=== PATIENT | female | born 1940 | race Caucasian/White ===

== ENCOUNTER → 2016-04-26 | Outpatient (REF) | payer MEDICARE, BC ==
[~2016-04-26] MED LIST: ACET-654 PO; ACET50TAOT PO; AMBI5TAB PO; AMLO10TA PO; AMLO10TA2 PO; AMOX875T2 PO; ASPI1TAB PO; ASPI81TAEC PO; ATOR1TAB18 PO; ATOR1TAB21 PO; CEFT500T PO; CELE10TA PO; CLOP75TA2 PO; DULC10SU2 PR; ENEM1ENE4 PR; FERR325T PO; GLUC500T PO; HYDR25TAB PO; HYDR62TA PO; IBUPOTC PO; LABE20TAB PO; LISI-538 PO; MAGN400T2 PO; MAGN400T5 PO; METF500T PO; MILKSUS PO; NICO21PAT TD; PLAV75TA PO; POTA10CA PO; SENN8.6T7 PO; VITMTA PO; ZOLP5TAB PO
[2016-04-26 10:39] LABS: MEAN CORPUSCULAR HEMOGLOBIN 28.2 pg (27.0-33.0); MEAN CORPUSCULAR HGB CONC 31.7 g/dl (32.0-36.5); MEAN CORPUSCULAR VOLUME 89.1 fl (80.0-96.0); RED CELL DISTRIBUTION WIDTH 14.9 % (11.5-14.5); WHITE BLOOD COUNT 11.4 K/mm3 (4.0-10.0)
[2016-04-26 11:16] LABS: CALCIUM LEVEL 9.5 MG/DL (8.8-10.2); CREATININE FOR GFR 1.03 MG/DL (0.55-1.02); GLOMERULAR FILTRATION RATE 55.9 (>39); MAGNESIUM LEVEL 1.8 MG/DL (1.8-2.4); POTASSIUM SERUM 4.2 MEQ/L (3.5-5.1)
== END ==
PROVIDERS: ATTEND Internal Medicine
DX: E83.42 Hypomagnesemia (principal)

== ENCOUNTER → 2016-05-25 | Outpatient (REF) | payer MEDICARE, BC ==
[~2016-05-25] MED LIST changes: -CEFT500T PO; +CEFT500T3 PO; -PLAV75TA PO; +PLAV75TA38 PO
[2016-05-25 11:01] LABS: MEAN CORPUSCULAR HEMOGLOBIN 28.9 pg (27.0-33.0); MEAN CORPUSCULAR HGB CONC 32.2 g/dl (32.0-36.5); MEAN CORPUSCULAR VOLUME 89.6 fl (80.0-96.0); RED CELL DISTRIBUTION WIDTH 13.1 % (11.5-14.5); WHITE BLOOD COUNT 12.3 K/mm3 (4.0-10.0)
[2016-05-25 11:20] LABS: ANION GAP 12 MEQ/L (8-16); BLOOD UREA NITROGEN 22 MG/DL (7-18); CALCIUM LEVEL 9.3 MG/DL (8.8-10.2); CARBON DIOXIDE LEVEL 27 MEQ/L (21-32); CHLORIDE LEVEL 100 MEQ/L (98-107); CREATININE FOR GFR 0.95 MG/DL (0.55-1.02); GLOMERULAR FILTRATION RATE > 60.0 (>39); GLUCOSE, FASTING 206 MG/DL (83-110); MAGNESIUM LEVEL 1.8 MG/DL (1.8-2.4); POTASSIUM SERUM 4.3 MEQ/L (3.5-5.1); SODIUM LEVEL 139 MEQ/L (136-145)
== END ==
PROVIDERS: ATTEND Internal Medicine
DX: E11.9 Type 2 diabetes mellitus without complications (principal); E83.42 Hypomagnesemia

== ENCOUNTER → 2016-06-29 | Outpatient (REF) | payer MEDICARE, BC ==
[2016-06-29 10:49] LABS: MEAN CORPUSCULAR HEMOGLOBIN 29.1 pg (27.0-33.0); MEAN CORPUSCULAR VOLUME 88.3 fl (80.0-96.0); RED CELL DISTRIBUTION WIDTH 12.8 % (11.5-14.5); WHITE BLOOD COUNT 9.5 K/mm3 (4.0-10.0)
[2016-06-29 11:30] LABS: CREATININE FOR GFR 0.98 MG/DL (0.55-1.02); GLOMERULAR FILTRATION RATE 59.2 (>39); POTASSIUM SERUM 4.2 MEQ/L (3.5-5.1)
== END ==
PROVIDERS: ATTEND Internal Medicine
DX: E83.42 Hypomagnesemia (principal)

== ENCOUNTER → 2016-07-27 | Outpatient (REF) | payer MEDICARE, BC ==
[~2016-07-27] MED LIST changes: +HYDR25TA6 PO; -HYDR62TA PO
[2016-07-27 10:00] LABS: MEAN CORPUSCULAR HEMOGLOBIN 29.1 pg (27.0-33.0); MEAN CORPUSCULAR HGB CONC 32.5 g/dl (32.0-36.5); MEAN CORPUSCULAR VOLUME 89.5 fl (80.0-96.0); WHITE BLOOD COUNT 10.2 K/mm3 (4.0-10.0)
[2016-07-27 10:25] LABS: CALCIUM LEVEL 8.9 MG/DL (8.8-10.2); CREATININE FOR GFR 0.97 MG/DL (0.55-1.02); GLOMERULAR FILTRATION RATE 59.9 (>39); MAGNESIUM LEVEL 1.8 MG/DL (1.8-2.4); POTASSIUM SERUM 4.2 MEQ/L (3.5-5.1)
== END ==
PROVIDERS: ATTEND Internal Medicine
DX: E83.42 Hypomagnesemia (principal)

== ENCOUNTER → 2016-08-24 | Outpatient (REF) | payer MEDICARE, BC ==
[2016-08-24 10:10] LABS: MEAN CORPUSCULAR HEMOGLOBIN 29.5 pg (27.0-33.0); MEAN CORPUSCULAR HGB CONC 32.8 g/dl (32.0-36.5); MEAN CORPUSCULAR VOLUME 89.9 fl (80.0-96.0); RED CELL DISTRIBUTION WIDTH 13.1 % (11.5-14.5); WHITE BLOOD COUNT 8.8 K/mm3 (4.0-10.0)
[2016-08-24 10:25] LABS: ANION GAP 9 MEQ/L (8-16); BLOOD UREA NITROGEN 17 MG/DL (7-18); CALCIUM LEVEL 9.1 MG/DL (8.8-10.2); CARBON DIOXIDE LEVEL 27 MEQ/L (21-32); CHLORIDE LEVEL 102 MEQ/L (98-107); CREATININE FOR GFR 0.95 MG/DL (0.55-1.02); GLOMERULAR FILTRATION RATE > 60.0 (>39); GLUCOSE, FASTING 211 MG/DL (83-110); POTASSIUM SERUM 4.8 MEQ/L (3.5-5.1); SODIUM LEVEL 138 MEQ/L (136-145)
== END ==
PROVIDERS: ATTEND Internal Medicine
DX: E11.9 Type 2 diabetes mellitus without complications (principal); E83.42 Hypomagnesemia

== ENCOUNTER → 2016-09-28 | Outpatient (REF) | payer MEDICARE, BC ==
[2016-09-28 10:40] LABS: MEAN CORPUSCULAR HEMOGLOBIN 30.2 pg (27.0-33.0); MEAN CORPUSCULAR VOLUME 88.8 fl (80.0-96.0); RED CELL DISTRIBUTION WIDTH 13.1 % (11.5-14.5); WHITE BLOOD COUNT 9.3 K/mm3 (4.0-10.0)
[2016-09-28 10:50] LABS: CALCIUM LEVEL 8.8 MG/DL (8.8-10.2); CREATININE FOR GFR 1.02 MG/DL (0.55-1.02); GLOMERULAR FILTRATION RATE 56.6 (>39); MAGNESIUM LEVEL 1.8 MG/DL (1.8-2.4); POTASSIUM SERUM 4.2 MEQ/L (3.5-5.1)
== END ==
PROVIDERS: ATTEND Internal Medicine
DX: E83.42 Hypomagnesemia (principal)

== ENCOUNTER → 2016-10-12 | Outpatient (REF) | payer MEDICARE, BC | PROVIDERS: ATTEND Internal Medicine | DX: R19.7 Diarrhea, unspecified (principal) ==

== ENCOUNTER → 2016-10-28 | Outpatient (REF) | payer MEDICARE, BC ==
[~2016-10-28] MED LIST changes: -ACET-654 PO; +ACET1TAB17 PO; -ATOR1TAB18 PO; +ATOR80TA59 PO; +FERR1TAB8 PO; -FERR325T PO; -METF500T PO; +METF500T13 PO; +PLAV1TAB2 PO; -PLAV75TA38 PO
[2016-10-28 10:30] LABS: MEAN CORPUSCULAR HEMOGLOBIN 29.2 pg (27.0-33.0); MEAN CORPUSCULAR HGB CONC 32.6 g/dl (32.0-36.5); MEAN CORPUSCULAR VOLUME 89.6 fl (80.0-96.0); RED CELL DISTRIBUTION WIDTH 13.4 % (11.5-14.5); WHITE BLOOD COUNT 10.3 K/mm3 (4.0-10.0)
[2016-10-28 10:56] LABS: ANION GAP 12 MEQ/L (8-16); BLOOD UREA NITROGEN 8 MG/DL (7-18); CARBON DIOXIDE LEVEL 22 MEQ/L (21-32); CHLORIDE LEVEL 102 MEQ/L (98-107); CREATININE FOR GFR 0.96 MG/DL (0.55-1.02); GLOMERULAR FILTRATION RATE > 60.0 (>39); GLUCOSE, FASTING 227 MG/DL (83-110); MAGNESIUM LEVEL 1.8 MG/DL (1.8-2.4); POTASSIUM SERUM 4.6 MEQ/L (3.5-5.1); SODIUM LEVEL 136 MEQ/L (136-145)
== END ==
PROVIDERS: ATTEND Internal Medicine
DX: E83.42 Hypomagnesemia (principal)

== ENCOUNTER → 2016-11-19 | Outpatient (REF) | payer MEDICARE, BC | PROVIDERS: ATTEND Internal Medicine | DX: I10 Essential (primary) hypertension (principal); E78.00 Pure hypercholesterolemia, unspecified ==

== ENCOUNTER → 2016-11-23 | Outpatient (REF) | payer MEDICARE, BC ==
[2016-11-23 10:30] LABS: MEAN CORPUSCULAR HEMOGLOBIN 29.2 pg (27.0-33.0); MEAN CORPUSCULAR HGB CONC 32.5 g/dl (32.0-36.5); RED CELL DISTRIBUTION WIDTH 13.3 % (11.5-14.5); WHITE BLOOD COUNT 9.2 K/mm3 (4.0-10.0)
[2016-11-23 10:47] LABS: CALCIUM LEVEL 9.2 MG/DL (8.8-10.2); CREATININE FOR GFR 1.11 MG/DL (0.55-1.02); GLOMERULAR FILTRATION RATE 51.3 (>39); MAGNESIUM LEVEL 2.1 MG/DL (1.8-2.4); POTASSIUM SERUM 4.6 MEQ/L (3.5-5.1)
== END ==
PROVIDERS: ATTEND Internal Medicine
DX: E11.9 Type 2 diabetes mellitus without complications (principal); E83.42 Hypomagnesemia

== ENCOUNTER → 2016-12-27 | Outpatient (REF) | payer MEDICARE, BC ==
[2016-12-27 11:21] LABS: MEAN CORPUSCULAR HEMOGLOBIN 29.7 pg (27.0-33.0); MEAN CORPUSCULAR HGB CONC 33.3 g/dl (32.0-36.5); MEAN CORPUSCULAR VOLUME 89.1 fl (80.0-96.0); RED CELL DISTRIBUTION WIDTH 12.9 % (11.5-14.5); WHITE BLOOD COUNT 10.2 K/mm3 (4.0-10.0)
[2016-12-27 11:41] LABS: CREATININE FOR GFR 1.02 MG/DL (0.55-1.02); GLOMERULAR FILTRATION RATE 56.4 (>39); POTASSIUM SERUM 4.4 MEQ/L (3.5-5.1)
== END ==
PROVIDERS: ATTEND Internal Medicine
DX: E83.42 Hypomagnesemia (principal)

== ENCOUNTER → 2017-01-07 | Outpatient (REF) | payer MEDICARE, BC | PROVIDERS: ATTEND Physician Assistant | DX: R19.7 Diarrhea, unspecified (principal) ==

== ENCOUNTER → 2017-01-24 | Outpatient (REF) | payer MEDICARE, BC ==
[2017-01-24 11:18] LABS: MEAN CORPUSCULAR HEMOGLOBIN 28.8 pg (27.0-33.0); MEAN CORPUSCULAR VOLUME 90.1 fl (80.0-96.0); RED CELL DISTRIBUTION WIDTH 13.5 % (11.5-14.5); WHITE BLOOD COUNT 9.4 10^3/uL (4.0-10.0)
[2017-01-24 11:49] LABS: CALCIUM LEVEL 8.8 MG/DL (8.8-10.2); CREATININE FOR GFR 1.08 MG/DL (0.55-1.02); GLOMERULAR FILTRATION RATE 52.8 (>39); MAGNESIUM LEVEL 2.1 MG/DL (1.8-2.4); POTASSIUM SERUM 4.7 MEQ/L (3.5-5.1)
== END ==
PROVIDERS: ATTEND Internal Medicine
DX: E83.42 Hypomagnesemia (principal)

== ENCOUNTER → 2017-03-29 | Outpatient (REF) | payer MEDICARE, BC ==
[2017-03-29 10:29] LABS: MEAN CORPUSCULAR HGB CONC 32.5 g/dl (32.0-36.5); MEAN CORPUSCULAR VOLUME 89.2 fl (80.0-96.0); PLATELET COUNT, AUTOMATED 314 10^3/uL (150-450); RED CELL DISTRIBUTION WIDTH 13.2 % (11.5-14.5)
[2017-03-29 10:44] LABS: ANION GAP 10 MEQ/L (8-16); BLOOD UREA NITROGEN 19 MG/DL (7-18); CARBON DIOXIDE LEVEL 24 MEQ/L (21-32); CHLORIDE LEVEL 103 MEQ/L (98-107); CREATININE FOR GFR 0.91 MG/DL (0.55-1.02); GLOMERULAR FILTRATION RATE > 60.0 (>39); GLUCOSE, FASTING 137 MG/DL (83-110); POTASSIUM SERUM 4.8 MEQ/L (3.5-5.1); SODIUM LEVEL 137 MEQ/L (136-145)
== END ==
PROVIDERS: ATTEND Internal Medicine
DX: E83.42 Hypomagnesemia (principal)

== ENCOUNTER → 2017-04-04 | Outpatient (REF) | payer MEDICARE, BC ==
[2017-04-04 15:32] LABS: MEAN CORPUSCULAR HEMOGLOBIN 28.5 pg (27.0-33.0); MEAN CORPUSCULAR HGB CONC 32.1 g/dl (32.0-36.5); MEAN CORPUSCULAR VOLUME 88.7 fl (80.0-96.0); PLATELET COUNT, AUTOMATED 358 10^3/uL (150-450); RED CELL DISTRIBUTION WIDTH 13.4 % (11.5-14.5); WHITE BLOOD COUNT 12.1 10^3/uL (4.0-10.0)
[2017-04-04 15:41] LABS: ANION GAP 10 MEQ/L (8-16); BLOOD UREA NITROGEN 21 MG/DL (7-18); CALCIUM LEVEL 9.1 MG/DL (8.8-10.2); CARBON DIOXIDE LEVEL 27 MEQ/L (21-32); CHLORIDE LEVEL 101 MEQ/L (98-107); CREATININE FOR GFR 0.95 MG/DL (0.55-1.02); GLOMERULAR FILTRATION RATE > 60.0 (>39); GLUCOSE, FASTING 163 MG/DL (83-110); POTASSIUM SERUM 4.6 MEQ/L (3.5-5.1); SODIUM LEVEL 138 MEQ/L (136-145)
--- NOTE | 2017-04-04 16:22 | REP ---
CHEST, SINGLE VIEW: Single view of the chest is performed. There is no definite acute infiltrate. There appears to be some mild bibasilar fibroatelectatic change. The patient is rotated toward the right. The heart does not appear to be significantly enlarged. There is tortuosity of the thoracic aorta. IMPRESSION: Mild bibasilar fibroatelectatic change without evidence of acute infiltrate. Signed by Glenroy Pedroza MD 04/05/2017 09:05 A
== END ==
PROVIDERS: ATTEND Internal Medicine
DX: R05 Cough (principal)

== ENCOUNTER → 2017-04-06 | Outpatient (REF) | payer MEDICARE, BC ==
[2017-04-06 17:22] LABS: MEAN CORPUSCULAR HEMOGLOBIN 28.1 pg (27.0-33.0); MEAN CORPUSCULAR HGB CONC 31.8 g/dl (32.0-36.5); MEAN CORPUSCULAR VOLUME 88.4 fl (80.0-96.0); PLATELET COUNT, AUTOMATED 360 10^3/uL (150-450); RED CELL DISTRIBUTION WIDTH 13.4 % (11.5-14.5); WHITE BLOOD COUNT 11.7 10^3/uL (4.0-10.0)
== END ==
PROVIDERS: ATTEND Internal Medicine
DX: J20.9 Acute bronchitis, unspecified (principal)

== ENCOUNTER → 2017-04-12 | Outpatient (REF) | payer MEDICARE, BC ==
[2017-04-12 11:16] LABS: MEAN CORPUSCULAR HEMOGLOBIN 27.6 pg (27.0-33.0); MEAN CORPUSCULAR VOLUME 86.2 fl (80.0-96.0); PLATELET COUNT, AUTOMATED 318 10^3/uL (150-450); RED CELL DISTRIBUTION WIDTH 13.7 % (11.5-14.5); WHITE BLOOD COUNT 10.4 10^3/uL (4.0-10.0)
[2017-04-12 11:54] LABS: CALCIUM LEVEL 8.9 MG/DL (8.8-10.2); CREATININE FOR GFR 0.98 MG/DL (0.55-1.02); GLOMERULAR FILTRATION RATE 59.1 (>39); POTASSIUM SERUM 4.6 MEQ/L (3.5-5.1)
== END ==
PROVIDERS: ATTEND Internal Medicine
DX: R05 Cough (principal)

== ENCOUNTER → 2017-04-26 | Outpatient (REF) | payer MEDICARE, BC ==
[2017-04-26 10:59] LABS: HEMATOCRIT 34.2 % (36.0-47.0); HEMOGLOBIN 11.1 g/dl (12.0-16.0); MEAN CORPUSCULAR HEMOGLOBIN 28.4 pg (27.0-33.0); MEAN CORPUSCULAR HGB CONC 32.5 g/dl (32.0-36.5); MEAN CORPUSCULAR VOLUME 87.5 fl (80.0-96.0); PLATELET COUNT, AUTOMATED 292 10^3/uL (150-450); RED BLOOD COUNT 3.91 10^6/uL (4.00-5.40); RED CELL DISTRIBUTION WIDTH 13.8 % (11.5-14.5); WHITE BLOOD COUNT 11.1 10^3/uL (4.0-10.0)
[2017-04-26 11:23] LABS: ANION GAP 10 MEQ/L (8-16); BLOOD UREA NITROGEN 13 MG/DL (7-18); CALCIUM LEVEL 8.7 MG/DL (8.8-10.2); CARBON DIOXIDE LEVEL 24 MEQ/L (21-32); CHLORIDE LEVEL 101 MEQ/L (98-107); GLOMERULAR FILTRATION RATE > 60.0 (>39); GLUCOSE, FASTING 140 MG/DL (83-110); MAGNESIUM LEVEL 1.9 MG/DL (1.8-2.4); POTASSIUM SERUM 4.5 MEQ/L (3.5-5.1); SODIUM LEVEL 135 MEQ/L (136-145)
== END ==
DX: E83.42 Hypomagnesemia (principal)
CPT/HCPCS: 83735

== ENCOUNTER → 2017-05-09 | Outpatient (REF) | payer MEDICARE, BC ==
[2017-05-09 14:04] LABS: HEMOGLOBIN 10.9 g/dl (12.0-16.0); MEAN CORPUSCULAR HEMOGLOBIN 27.9 pg (27.0-33.0); MEAN CORPUSCULAR HGB CONC 32.1 g/dl (32.0-36.5); PLATELET COUNT, AUTOMATED 333 10^3/uL (150-450); RED BLOOD COUNT 3.91 10^6/uL (4.00-5.40); RED CELL DISTRIBUTION WIDTH 13.7 % (11.5-14.5); WHITE BLOOD COUNT 12.2 10^3/uL (4.0-10.0)
[2017-05-09 14:34] LABS: ANION GAP 8 MEQ/L (8-16); BLOOD UREA NITROGEN 21 MG/DL (7-18); CARBON DIOXIDE LEVEL 25 MEQ/L (21-32); CHLORIDE LEVEL 101 MEQ/L (98-107); CREATININE FOR GFR 0.91 MG/DL (0.55-1.02); GLOMERULAR FILTRATION RATE > 60.0 (>39); GLUCOSE, FASTING 174 MG/DL (83-110); POTASSIUM SERUM 4.3 MEQ/L (3.5-5.1); SODIUM LEVEL 134 MEQ/L (136-145); URIC ACID 5.1 MG/DL (2.6-6.0)
== END ==
DX: M79.675 Pain in left toe(s) (principal); L03.032 Cellulitis of left toe
CPT/HCPCS: 84550

== ENCOUNTER → 2017-05-11 | Outpatient (REF) | payer MEDICARE, BC ==
[2017-05-11 10:12] LABS: HEMATOCRIT 36.1 % (36.0-47.0); HEMOGLOBIN 11.5 g/dl (12.0-16.0); MEAN CORPUSCULAR HEMOGLOBIN 28.1 pg (27.0-33.0); MEAN CORPUSCULAR HGB CONC 31.9 g/dl (32.0-36.5); MEAN CORPUSCULAR VOLUME 88.3 fl (80.0-96.0); PLATELET COUNT, AUTOMATED 400 10^3/uL (150-450); RED BLOOD COUNT 4.09 10^6/uL (4.00-5.40); RED CELL DISTRIBUTION WIDTH 13.7 % (11.5-14.5); WHITE BLOOD COUNT 10.2 10^3/uL (4.0-10.0)
== END ==
DX: L03.032 Cellulitis of left toe (principal)
CPT/HCPCS: 85027

== ENCOUNTER → 2017-05-31 | Outpatient (REF) | payer MEDICARE, BC ==
[2017-05-31 10:13] LABS: HEMATOCRIT 35.4 % (36.0-47.0); MEAN CORPUSCULAR HEMOGLOBIN 27.4 pg (27.0-33.0); MEAN CORPUSCULAR HGB CONC 31.1 g/dl (32.0-36.5); MEAN CORPUSCULAR VOLUME 88.1 fl (80.0-96.0); PLATELET COUNT, AUTOMATED 271 10^3/uL (150-450); RED BLOOD COUNT 4.02 10^6/uL (4.00-5.40); RED CELL DISTRIBUTION WIDTH 14.3 % (11.5-14.5); WHITE BLOOD COUNT 9.8 10^3/uL (4.0-10.0)
[2017-05-31 10:27] LABS: ANION GAP 10 MEQ/L (8-16); BLOOD UREA NITROGEN 19 MG/DL (7-18); CALCIUM LEVEL 8.5 MG/DL (8.8-10.2); CARBON DIOXIDE LEVEL 25 MEQ/L (21-32); CHLORIDE LEVEL 101 MEQ/L (98-107); CREATININE FOR GFR 1.09 MG/DL (0.55-1.30); GLOMERULAR FILTRATION RATE 52.2 (>39); GLUCOSE, FASTING 209 MG/DL (70-100); POTASSIUM SERUM 4.8 MEQ/L (3.5-5.1); SODIUM LEVEL 136 MEQ/L (136-145)
[2017-05-31 10:29] LABS: ESTIMATED AVERAGE GLUCOSE 194 MG/DL (60-110); HEMOGLOBIN A1c 8.4 %
== END ==
DX: E83.42 Hypomagnesemia (principal); E11.9 Type 2 diabetes mellitus without complications
CPT/HCPCS: 83036

== ENCOUNTER → 2017-06-07 | Outpatient (REF) | payer MEDICARE, BC ==
[2017-06-07 20:34] LABS: HEMATOCRIT 36.7 % (36.0-47.0); HEMOGLOBIN 11.4 g/dl (12.0-16.0); MEAN CORPUSCULAR HEMOGLOBIN 27.1 pg (27.0-33.0); MEAN CORPUSCULAR HGB CONC 31.1 g/dl (32.0-36.5); MEAN CORPUSCULAR VOLUME 87.4 fl (80.0-96.0); PLATELET COUNT, AUTOMATED 300 10^3/uL (150-450); RED CELL DISTRIBUTION WIDTH 14.3 % (11.5-14.5); WHITE BLOOD COUNT 9.8 10^3/uL (4.0-10.0)
[2017-06-07 21:14] LABS: ANION GAP 9 MEQ/L (8-16); BLOOD UREA NITROGEN 21 MG/DL (7-18); C REACTIVE PROTEIN QUANTITATIV 0.43 MG/DL (0.00-0.30); CARBON DIOXIDE LEVEL 25 MEQ/L (21-32); CHLORIDE LEVEL 103 MEQ/L (98-107); CREATININE FOR GFR 0.86 MG/DL (0.55-1.30); GLOMERULAR FILTRATION RATE > 60.0 (>39); GLUCOSE, FASTING 176 MG/DL (70-100); POTASSIUM SERUM 4.3 MEQ/L (3.5-5.1); SODIUM LEVEL 137 MEQ/L (136-145)
[2017-06-07 21:19] LABS: ERYTHROCYTE SEDIMENTATION RATE 45 mm/hr (0-30)
== END ==
DX: L08.9 Local infection of the skin and subcutaneous tissue, unspecified (principal)
CPT/HCPCS: 80048

== ENCOUNTER → 2017-06-08 | Outpatient (REF) | payer MEDICARE, BC | DX: M86.172 Other acute osteomyelitis, left ankle and foot (principal) | CPT/HCPCS: 73620 ==

== ENCOUNTER → 2017-06-12 | Outpatient (REF) | payer MEDICARE, BC ==
[2017-06-12 10:59] LABS: HEMATOCRIT 35.2 % (36.0-47.0); HEMOGLOBIN 11.1 g/dl (12.0-16.0); MEAN CORPUSCULAR HEMOGLOBIN 27.1 pg (27.0-33.0); MEAN CORPUSCULAR HGB CONC 31.5 g/dl (32.0-36.5); MEAN CORPUSCULAR VOLUME 85.9 fl (80.0-96.0); PLATELET COUNT, AUTOMATED 284 10^3/uL (150-450); RED CELL DISTRIBUTION WIDTH 14.4 % (11.5-14.5); WHITE BLOOD COUNT 9.1 10^3/uL (4.0-10.0)
[2017-06-12 11:10] LABS: ANION GAP 9 MEQ/L (8-16); BLOOD UREA NITROGEN 21 MG/DL (7-18); C REACTIVE PROTEIN QUANTITATIV 0.59 MG/DL (0.00-0.30); CALCIUM LEVEL 8.8 MG/DL (8.8-10.2); CARBON DIOXIDE LEVEL 26 MEQ/L (21-32); CHLORIDE LEVEL 103 MEQ/L (98-107); CREATININE FOR GFR 0.98 MG/DL (0.55-1.30); GLOMERULAR FILTRATION RATE 59.1 (>39); GLUCOSE, FASTING 215 MG/DL (70-100); POTASSIUM SERUM 4.4 MEQ/L (3.5-5.1); SODIUM LEVEL 138 MEQ/L (136-145)
[2017-06-12 12:55] LABS: ERYTHROCYTE SEDIMENTATION RATE 6 mm/hr (0-30)
== END ==
DX: L03.032 Cellulitis of left toe (principal)
CPT/HCPCS: 80048

== ENCOUNTER → 2017-06-19 | Outpatient (REF) | payer MEDICARE, BC ==
[2017-06-19 10:08] LABS: HEMATOCRIT 36.3 % (36.0-47.0); HEMOGLOBIN 11.5 g/dl (12.0-16.0); MEAN CORPUSCULAR HEMOGLOBIN 27.4 pg (27.0-33.0); MEAN CORPUSCULAR HGB CONC 31.7 g/dl (32.0-36.5); MEAN CORPUSCULAR VOLUME 86.4 fl (80.0-96.0); PLATELET COUNT, AUTOMATED 301 10^3/uL (150-450); RED CELL DISTRIBUTION WIDTH 14.5 % (11.5-14.5); WHITE BLOOD COUNT 9.7 10^3/uL (4.0-10.0)
[2017-06-19 10:29] LABS: ANION GAP 9 MEQ/L (8-16); BLOOD UREA NITROGEN 18 MG/DL (7-18); C REACTIVE PROTEIN QUANTITATIV 0.33 MG/DL (0.00-0.30); CALCIUM LEVEL 8.8 MG/DL (8.8-10.2); CARBON DIOXIDE LEVEL 25 MEQ/L (21-32); CHLORIDE LEVEL 103 MEQ/L (98-107); CREATININE FOR GFR 0.88 MG/DL (0.55-1.30); GLOMERULAR FILTRATION RATE > 60.0 (>39); GLUCOSE, FASTING 160 MG/DL (70-100); POTASSIUM SERUM 4.8 MEQ/L (3.5-5.1); SODIUM LEVEL 137 MEQ/L (136-145)
== END ==
DX: L03.031 Cellulitis of right toe (principal)
CPT/HCPCS: 80048

== ENCOUNTER 2017-06-20 09:24 | Outpatient (REF) | payer MEDICARE, BC, MEDICAID | END 2017-06-21 | LOC: M LAB REF 09:24 | DX: D23.72 Other benign neoplasm of skin of left lower limb, including hip (principal); L90.5 Scar conditions and fibrosis of skin; L08.9 Local infection of the skin and subcutaneous tissue, unspecified; E11.621 Type 2 diabetes mellitus with foot ulcer | CPT/HCPCS: 88304 ==

== ENCOUNTER → 2017-06-21 | Outpatient (REF) | payer MEDICARE, BC ==
[2017-06-21 10:40] LABS: HEMATOCRIT 35.8 % (36.0-47.0); HEMOGLOBIN 11.2 g/dl (12.0-16.0); MEAN CORPUSCULAR HEMOGLOBIN 27.4 pg (27.0-33.0); MEAN CORPUSCULAR HGB CONC 31.3 g/dl (32.0-36.5); MEAN CORPUSCULAR VOLUME 87.5 fl (80.0-96.0); PLATELET COUNT, AUTOMATED 279 10^3/uL (150-450); RED BLOOD COUNT 4.09 10^6/uL (4.00-5.40); RED CELL DISTRIBUTION WIDTH 14.6 % (11.5-14.5); WHITE BLOOD COUNT 10.8 10^3/uL (4.0-10.0)
[2017-06-21 11:03] LABS: ERYTHROCYTE SEDIMENTATION RATE 41 mm/hr (0-30)
[2017-06-21 11:05] LABS: C REACTIVE PROTEIN QUANTITATIV 0.31 MG/DL (0.00-0.30)
== END ==
DX: M86.9 Osteomyelitis, unspecified (principal)
CPT/HCPCS: 86140

== ENCOUNTER → 2017-06-22 | Outpatient (REF) | payer MEDICARE, BC, MEDICAID | LOC: M SFHCPLAZ 15:43 | DX: M86.9 Osteomyelitis, unspecified (principal) | CPT/HCPCS: 87070 ==

== ENCOUNTER → 2017-06-27 | Outpatient (REF) ==
[2017-06-27 10:43] LABS: HEMATOCRIT 37.7 % (36.0-47.0); HEMOGLOBIN 11.7 g/dl (12.0-16.0); MEAN CORPUSCULAR HEMOGLOBIN 27.2 pg (27.0-33.0); MEAN CORPUSCULAR VOLUME 87.7 fl (80.0-96.0); PLATELET COUNT, AUTOMATED 263 10^3/uL (150-450); RED CELL DISTRIBUTION WIDTH 14.6 % (11.5-14.5); WHITE BLOOD COUNT 9.8 10^3/uL (4.0-10.0)
[2017-06-27 11:09] LABS: ANION GAP 10 MEQ/L (8-16); BLOOD UREA NITROGEN 20 MG/DL (7-18); CALCIUM LEVEL 8.8 MG/DL (8.8-10.2); CARBON DIOXIDE LEVEL 24 MEQ/L (21-32); CHLORIDE LEVEL 104 MEQ/L (98-107); CREATININE FOR GFR 0.98 MG/DL (0.55-1.30); GLOMERULAR FILTRATION RATE 59.1 (>39); GLUCOSE, FASTING 240 MG/DL (70-100); MAGNESIUM LEVEL 1.8 MG/DL (1.8-2.4); POTASSIUM SERUM 4.4 MEQ/L (3.5-5.1); SODIUM LEVEL 138 MEQ/L (136-145)
== END ==
DX: E83.42 Hypomagnesemia (principal)

== ENCOUNTER → 2017-06-29 | Outpatient (CLI) | payer MEDICARE, MEDICAID, BC | LOC: M RAD 13:14 | DX: L97.524 Non-pressure chronic ulcer of other part of left foot with necrosis of bone (principal); E11.621 Type 2 diabetes mellitus with foot ulcer; I77.9 Disorder of arteries and arterioles, unspecified; I10 Essential (primary) hypertension; M86.172 Other acute osteomyelitis, left ankle and foot | CPT/HCPCS: 93971 ==

== ENCOUNTER → 2017-07-25 | Outpatient (REF) ==
[2017-07-25 10:26] LABS: HEMATOCRIT 35.6 % (36.0-47.0); HEMOGLOBIN 11.2 g/dl (12.0-15.5); MEAN CORPUSCULAR HGB CONC 31.5 g/dl (32.0-36.5); MEAN CORPUSCULAR VOLUME 85.8 fl (80.0-96.0); PLATELET COUNT, AUTOMATED 279 10^3/uL (150-450); RED BLOOD COUNT 4.15 10^6/uL (4.00-5.40); RED CELL DISTRIBUTION WIDTH 14.6 % (11.5-14.5); WHITE BLOOD COUNT 9.5 10^3/uL (4.0-10.0)
[2017-07-25 10:36] LABS: ANION GAP 8 MEQ/L (8-16); BLOOD UREA NITROGEN 22 MG/DL (7-18); CALCIUM LEVEL 8.9 MG/DL (8.8-10.2); CARBON DIOXIDE LEVEL 26 MEQ/L (21-32); CHLORIDE LEVEL 105 MEQ/L (98-107); CREATININE FOR GFR 0.95 MG/DL (0.55-1.30); GLOMERULAR FILTRATION RATE > 60.0 (>39); GLUCOSE, FASTING 168 MG/DL (70-100); MAGNESIUM LEVEL 2.2 MG/DL (1.8-2.4); POTASSIUM SERUM 4.7 MEQ/L (3.5-5.1); SODIUM LEVEL 139 MEQ/L (136-145)
== END ==
DX: E83.42 Hypomagnesemia (principal)

== ENCOUNTER → 2017-08-22 | Outpatient (REF) ==
[2017-08-22 10:36] LABS: HEMATOCRIT 36.7 % (36.0-47.0); HEMOGLOBIN 11.6 g/dl (12.0-15.5); MEAN CORPUSCULAR HEMOGLOBIN 27.2 pg (27.0-33.0); MEAN CORPUSCULAR HGB CONC 31.6 g/dl (32.0-36.5); MEAN CORPUSCULAR VOLUME 86.2 fl (80.0-96.0); PLATELET COUNT, AUTOMATED 308 10^3/uL (150-450); RED BLOOD COUNT 4.26 10^6/uL (4.00-5.40); RED CELL DISTRIBUTION WIDTH 14.6 % (11.5-14.5); WHITE BLOOD COUNT 8.4 10^3/uL (4.0-10.0)
[2017-08-22 11:05] LABS: MAGNESIUM LEVEL 2.2 MG/DL (1.8-2.4)
[2017-08-22 11:09] LABS: ANION GAP 7 MEQ/L (8-16); BLOOD UREA NITROGEN 22 MG/DL (7-18); CALCIUM LEVEL 8.9 MG/DL (8.8-10.2); CARBON DIOXIDE LEVEL 26 MEQ/L (21-32); CHLORIDE LEVEL 104 MEQ/L (98-107); CREATININE FOR GFR 0.98 MG/DL (0.55-1.30); GLOMERULAR FILTRATION RATE 59.1 (>39); GLUCOSE, FASTING 158 MG/DL (70-100); POTASSIUM SERUM 4.3 MEQ/L (3.5-5.1); SODIUM LEVEL 137 MEQ/L (136-145)
[2017-08-22 12:29] LABS: ESTIMATED AVERAGE GLUCOSE 200 MG/DL (60-110); HEMOGLOBIN A1c 8.6 %
== END ==
DX: E83.42 Hypomagnesemia (principal)

== ENCOUNTER → 2017-09-29 | Outpatient (REF) ==
[2017-09-29 11:00] LABS: HEMATOCRIT 36.8 % (36.0-47.0); HEMOGLOBIN 11.7 g/dl (12.0-15.5); MEAN CORPUSCULAR HEMOGLOBIN 27.3 pg (27.0-33.0); MEAN CORPUSCULAR HGB CONC 31.8 g/dl (32.0-36.5); PLATELET COUNT, AUTOMATED 298 10^3/uL (150-450); RED BLOOD COUNT 4.28 10^6/uL (4.00-5.40); RED CELL DISTRIBUTION WIDTH 14.4 % (11.5-14.5); WHITE BLOOD COUNT 10.2 10^3/uL (4.0-10.0)
[2017-09-29 11:47] LABS: ANION GAP 8 MEQ/L (8-16); BLOOD UREA NITROGEN 19 MG/DL (7-18); CALCIUM LEVEL 8.8 MG/DL (8.8-10.2); CARBON DIOXIDE LEVEL 25 MEQ/L (21-32); CHLORIDE LEVEL 106 MEQ/L (98-107); CREATININE FOR GFR 0.93 MG/DL (0.55-1.30); GLOMERULAR FILTRATION RATE > 60.0 (>39); GLUCOSE, FASTING 146 MG/DL (70-100); MAGNESIUM LEVEL 1.8 MG/DL (1.8-2.4); POTASSIUM SERUM 4.5 MEQ/L (3.5-5.1); SODIUM LEVEL 139 MEQ/L (136-145)
== END ==
DX: E83.42 Hypomagnesemia (principal)

== ENCOUNTER → 2017-10-27 | Outpatient (REF) ==
[2017-10-27 09:25] LABS: HEMATOCRIT 36.7 % (36.0-47.0); HEMOGLOBIN 11.5 g/dl (12.0-15.5); MEAN CORPUSCULAR HEMOGLOBIN 27.3 pg (27.0-33.0); MEAN CORPUSCULAR HGB CONC 31.3 g/dl (32.0-36.5); PLATELET COUNT, AUTOMATED 260 10^3/uL (150-450); RED BLOOD COUNT 4.22 10^6/uL (4.00-5.40); RED CELL DISTRIBUTION WIDTH 14.1 % (11.5-14.5); WHITE BLOOD COUNT 9.9 10^3/uL (4.0-10.0)
[2017-10-27 10:11] LABS: ANION GAP 11 MEQ/L (8-16); BLOOD UREA NITROGEN 20 MG/DL (7-18); CALCIUM LEVEL 8.5 MG/DL (8.8-10.2); CARBON DIOXIDE LEVEL 19 MEQ/L (21-32); CHLORIDE LEVEL 109 MEQ/L (98-107); CREATININE FOR GFR 0.86 MG/DL (0.55-1.30); GLOMERULAR FILTRATION RATE > 60.0 (>39); GLUCOSE, FASTING 123 MG/DL (70-100); POTASSIUM SERUM 4.6 MEQ/L (3.5-5.1); SODIUM LEVEL 139 MEQ/L (136-145)
== END ==
DX: E83.42 Hypomagnesemia (principal)

== ENCOUNTER → 2017-12-01 | Outpatient (REF) ==
[2017-12-01 09:43] LABS: HEMATOCRIT 37.2 % (36.0-47.0); HEMOGLOBIN 11.7 g/dl (12.0-15.5); MEAN CORPUSCULAR HEMOGLOBIN 27.1 pg (27.0-33.0); MEAN CORPUSCULAR HGB CONC 31.5 g/dl (32.0-36.5); MEAN CORPUSCULAR VOLUME 86.3 fl (80.0-96.0); PLATELET COUNT, AUTOMATED 279 10^3/uL (150-450); RED BLOOD COUNT 4.31 10^6/uL (4.00-5.40); RED CELL DISTRIBUTION WIDTH 14.4 % (11.5-14.5); WHITE BLOOD COUNT 9.5 10^3/uL (4.0-10.0)
[2017-12-01 10:14] LABS: ANION GAP 9 MEQ/L (8-16); BLOOD UREA NITROGEN 18 MG/DL (7-18); CARBON DIOXIDE LEVEL 25 MEQ/L (21-32); CHLORIDE LEVEL 105 MEQ/L (98-107); CREATININE FOR GFR 0.98 MG/DL (0.55-1.30); GLOMERULAR FILTRATION RATE 59.1 (>39); GLUCOSE, FASTING 139 MG/DL (70-100); POTASSIUM SERUM 4.4 MEQ/L (3.5-5.1); SODIUM LEVEL 139 MEQ/L (136-145)
[2017-12-01 11:42] LABS: ESTIMATED AVERAGE GLUCOSE 186 MG/DL (60-110); HEMOGLOBIN A1c 8.1 %
== END ==
DX: E83.42 Hypomagnesemia (principal); E11.9 Type 2 diabetes mellitus without complications

== ENCOUNTER → 2017-12-26 | Outpatient (REF) ==
[2017-12-26 11:10] LABS: HEMATOCRIT 37.2 % (36.0-47.0); HEMOGLOBIN 11.8 g/dl (12.0-15.5); MEAN CORPUSCULAR HEMOGLOBIN 27.4 pg (27.0-33.0); MEAN CORPUSCULAR HGB CONC 31.7 g/dl (32.0-36.5); MEAN CORPUSCULAR VOLUME 86.5 fl (80.0-96.0); PLATELET COUNT, AUTOMATED 263 10^3/uL (150-450); RED CELL DISTRIBUTION WIDTH 14.6 % (11.5-14.5)
[2017-12-26 11:33] LABS: ANION GAP 8 MEQ/L (8-16); BLOOD UREA NITROGEN 17 MG/DL (7-18); CALCIUM LEVEL 8.9 MG/DL (8.8-10.2); CARBON DIOXIDE LEVEL 25 MEQ/L (21-32); CHLORIDE LEVEL 105 MEQ/L (98-107); CREATININE FOR GFR 0.94 MG/DL (0.55-1.30); GLOMERULAR FILTRATION RATE > 60.0 (>39); GLUCOSE, FASTING 131 MG/DL (70-100); MAGNESIUM LEVEL 2.1 MG/DL (1.8-2.4); POTASSIUM SERUM 4.6 MEQ/L (3.5-5.1); SODIUM LEVEL 138 MEQ/L (136-145)
== END ==
DX: E83.42 Hypomagnesemia (principal)

== ENCOUNTER → 2018-01-01 | Outpatient (CLI) | payer MEDICARE, MEDICAID ==
[~2018-01-01] MED LIST changes: -ACET1TAB17 PO; -ACET50TAOT PO; -AMBI5TAB PO; -AMLO10TA PO; -AMLO10TA2 PO; -AMOX875T2 PO; -ASPI1TAB PO; -ASPI81TAEC PO; -ATOR1TAB21 PO; -ATOR80TA59 PO; -CEFT500T3 PO; -CELE10TA PO; -CLOP75TA2 PO; -DULC10SU2 PR; +E-Z-PAQUE 96% w/w SUSP 176GM BTL As Ordered; -ENEM1ENE4 PR; -FERR1TAB8 PO; -GLUC500T PO; -HYDR25TA6 PO; -HYDR25TAB PO; -IBUPOTC PO; -LABE20TAB PO; -LISI-538 PO; -MAGN400T2 PO; -MAGN400T5 PO; -METF500T13 PO; -MILKSUS PO; -NICO21PAT TD; -PLAV1TAB2 PO; -POTA10CA PO; -SENN8.6T7 PO; +VARIBAR NECTAR 40% w/v 240ML SUSP BTL As Ordered; +VARIBAR PUDDING 40% w/v 230ML TUBE As Ordered; -VITMTA PO; -ZOLP5TAB PO
== END ==
LOC: M RAD 10:33
DX: R13.12 Dysphagia, oropharyngeal phase (principal)
CPT/HCPCS: 74230

== ENCOUNTER → 2018-01-24 | Outpatient (REF) ==
[2018-01-24 10:27] LABS: HEMATOCRIT 38.7 % (36.0-47.0); HEMOGLOBIN 12.2 g/dl (12.0-15.5); MEAN CORPUSCULAR HEMOGLOBIN 27.7 pg (27.0-33.0); MEAN CORPUSCULAR HGB CONC 31.5 g/dl (32.0-36.5); PLATELET COUNT, AUTOMATED 278 10^3/uL (150-450); RED CELL DISTRIBUTION WIDTH 14.4 % (11.5-14.5); WHITE BLOOD COUNT 10.2 10^3/uL (4.0-10.0)
[2018-01-24 10:54] LABS: ANION GAP 10 MEQ/L (8-16); BLOOD UREA NITROGEN 23 MG/DL (7-18); CALCIUM LEVEL 9.1 MG/DL (8.8-10.2); CARBON DIOXIDE LEVEL 24 MEQ/L (21-32); CHLORIDE LEVEL 106 MEQ/L (98-107); CREATININE FOR GFR 0.97 MG/DL (0.55-1.30); GLOMERULAR FILTRATION RATE 59.6 (>39); GLUCOSE, FASTING 148 MG/DL (70-100); MAGNESIUM LEVEL 2.2 MG/DL (1.8-2.4); POTASSIUM SERUM 4.5 MEQ/L (3.5-5.1); SODIUM LEVEL 140 MEQ/L (136-145)
== END ==
DX: E83.42 Hypomagnesemia (principal)

== ENCOUNTER → 2018-02-28 | Outpatient (REF) ==
[2018-02-28 09:49] LABS: HEMATOCRIT 38.5 % (36.0-47.0); HEMOGLOBIN 12.2 g/dl (12.0-15.5); MEAN CORPUSCULAR HEMOGLOBIN 28.2 pg (27.0-33.0); MEAN CORPUSCULAR HGB CONC 31.7 g/dl (32.0-36.5); MEAN CORPUSCULAR VOLUME 89.1 fl (80.0-96.0); PLATELET COUNT, AUTOMATED 278 10^3/uL (150-450); RED BLOOD COUNT 4.32 10^6/uL (4.00-5.40); RED CELL DISTRIBUTION WIDTH 13.8 % (11.5-14.5); WHITE BLOOD COUNT 10.1 10^3/uL (4.0-10.0)
[2018-02-28 10:10] LABS: ANION GAP 9 MEQ/L (8-16); BLOOD UREA NITROGEN 22 MG/DL (7-18); CALCIUM LEVEL 9.1 MG/DL (8.8-10.2); CARBON DIOXIDE LEVEL 25 MEQ/L (21-32); CHLORIDE LEVEL 106 MEQ/L (98-107); CREATININE FOR GFR 0.99 MG/DL (0.55-1.30); GLOMERULAR FILTRATION RATE 58.2 (>39); GLUCOSE, FASTING 162 MG/DL (70-100); MAGNESIUM LEVEL 2.1 MG/DL (1.8-2.4); POTASSIUM SERUM 4.6 MEQ/L (3.5-5.1); SODIUM LEVEL 140 MEQ/L (136-145)
[2018-02-28 10:42] LABS: ESTIMATED AVERAGE GLUCOSE 180 MG/DL (60-110); HEMOGLOBIN A1c 7.9 %
== END ==
DX: E83.42 Hypomagnesemia (principal); E11.9 Type 2 diabetes mellitus without complications

== ENCOUNTER → 2018-03-27 | Outpatient (REF) | payer MEDICARE, MEDICAID ==
[2018-03-27 10:04] LABS: HEMATOCRIT 35.8 % (36.0-47.0); HEMOGLOBIN 11.2 g/dl (12.0-15.5); MEAN CORPUSCULAR HEMOGLOBIN 27.3 pg (27.0-33.0); MEAN CORPUSCULAR HGB CONC 31.3 g/dl (32.0-36.5); MEAN CORPUSCULAR VOLUME 87.3 fl (80.0-96.0); PLATELET COUNT, AUTOMATED 258 10^3/uL (150-450); RED CELL DISTRIBUTION WIDTH 13.6 % (11.5-14.5); WHITE BLOOD COUNT 9.9 10^3/uL (4.0-10.0)
[2018-03-27 10:32] LABS: ANION GAP 9 MEQ/L (8-16); BLOOD UREA NITROGEN 25 MG/DL (7-18); CALCIUM LEVEL 8.4 MG/DL (8.8-10.2); CARBON DIOXIDE LEVEL 24 MEQ/L (21-32); CHLORIDE LEVEL 107 MEQ/L (98-107); CREATININE FOR GFR 1.01 MG/DL (0.55-1.30); GLOMERULAR FILTRATION RATE 56.9 (>39); GLUCOSE, FASTING 129 MG/DL (70-100); MAGNESIUM LEVEL 2.1 MG/DL (1.8-2.4); POTASSIUM SERUM 4.6 MEQ/L (3.5-5.1); SODIUM LEVEL 140 MEQ/L (136-145)
== END ==
DX: E11.9 Type 2 diabetes mellitus without complications (principal)
CPT/HCPCS: 83735

== ENCOUNTER → 2018-04-25 | Outpatient (REF) | payer MEDICARE, MEDICAID ==
[~2018-04-25] MED LIST changes: +ACET1TAB55 PO; +ACET500T15 PO; +AMBI5TAB PO; +AMLO10TA PO; +AMLO10TA4 PO; +AMOX875T2 PO; +ASPI1TAB PO; +ASPI81TAEC PO; +ATOR1TAB21 PO; +ATOR80TA59 PO; +CEFT500T3 PO; +CELE10TA PO; +CLOP75TA2 PO; +DULC10SU2 PR; -E-Z-PAQUE 96% w/w SUSP 176GM BTL As Ordered; +ENEM1ENE4 PR; +FERR1TAB8 PO; +GLUC500T PO; +HYDR25TA6 PO; +HYDR25TAB PO; +IBUPOTC PO; +KLOR10TA76 PO; +LABE20TAB PO; +LISI-538 PO; +MAGN400T2 PO; +MAGN400T5 PO; +METF500T13 PO; +MILK12002 PO; +NICO21PAT TD; +PLAV1TAB2 PO; +SENN8.6T7 PO; -VARIBAR NECTAR 40% w/v 240ML SUSP BTL As Ordered; -VARIBAR PUDDING 40% w/v 230ML TUBE As Ordered; +VITMTA PO; +ZOLP5TAB PO
[2018-04-25 11:34] LABS: HEMATOCRIT 39.2 % (36.0-47.0); HEMOGLOBIN 12.5 g/dl (12.0-15.5); MEAN CORPUSCULAR HGB CONC 31.9 g/dl (32.0-36.5); MEAN CORPUSCULAR VOLUME 87.7 fl (80.0-96.0); PLATELET COUNT, AUTOMATED 262 10^3/uL (150-450); RED BLOOD COUNT 4.47 10^6/uL (4.00-5.40); WHITE BLOOD COUNT 10.8 10^3/uL (4.0-10.0)
[2018-04-25 12:29] LABS: CALCIUM LEVEL 9.1 MG/DL (8.8-10.2); GLOMERULAR FILTRATION RATE 57.5 (>39); MAGNESIUM LEVEL 1.9 MG/DL (1.8-2.4); POTASSIUM SERUM 5.1 MEQ/L (3.5-5.1)
== END ==
PROVIDERS: ATTEND Internal Medicine
DX: E83.42 Hypomagnesemia (principal)

== ENCOUNTER → 2018-05-30 | Outpatient (REF) | payer MEDICARE, MEDICAID ==
[~2018-05-30] MED LIST changes: -AMLO10TA4 PO; +AMLO10TA5 PO; +MILK120011 PO; -MILK12002 PO
[2018-05-30 08:48] LABS: HEMATOCRIT 36.5 % (36.0-47.0); HEMOGLOBIN 11.5 g/dl (12.0-15.5); MEAN CORPUSCULAR HEMOGLOBIN 27.4 pg (27.0-33.0); MEAN CORPUSCULAR HGB CONC 31.5 g/dl (32.0-36.5); MEAN CORPUSCULAR VOLUME 87.1 fl (80.0-96.0); PLATELET COUNT, AUTOMATED 214 10^3/uL (150-450); RED BLOOD COUNT 4.19 10^6/uL (4.00-5.40); WHITE BLOOD COUNT 10.1 10^3/uL (4.0-10.0)
[2018-05-30 09:03] LABS: CALCIUM LEVEL 8.7 MG/DL (8.8-10.2); CREATININE FOR GFR 0.98 MG/DL (0.55-1.30); GLOMERULAR FILTRATION RATE 58.9 (>39); MAGNESIUM LEVEL 2.1 MG/DL (1.8-2.4); POTASSIUM SERUM 4.7 MEQ/L (3.5-5.1)
[2018-05-30 09:11] LABS: HEMOGLOBIN A1c 9.1 %
== END ==
PROVIDERS: ATTEND Internal Medicine
DX: E83.42 Hypomagnesemia (principal); Z79.899 Other long term (current) drug therapy

== ENCOUNTER → 2018-06-27 | Outpatient (REF) | payer MEDICARE, MEDICAID ==
[2018-06-27 10:29] LABS: HEMOGLOBIN 11.8 g/dl (12.0-15.5); MEAN CORPUSCULAR HEMOGLOBIN 27.5 pg (27.0-33.0); MEAN CORPUSCULAR HGB CONC 31.1 g/dl (32.0-36.5); MEAN CORPUSCULAR VOLUME 88.6 fl (80.0-96.0); PLATELET COUNT, AUTOMATED 278 10^3/uL (150-450); RED BLOOD COUNT 4.29 10^6/uL (4.00-5.40)
[2018-06-27 10:49] LABS: CALCIUM LEVEL 9.1 MG/DL (8.8-10.2); CREATININE FOR GFR 1.06 MG/DL (0.55-1.30); GLOMERULAR FILTRATION RATE 53.8 (>39); MAGNESIUM LEVEL 2.3 MG/DL (1.8-2.4); POTASSIUM SERUM 4.8 MEQ/L (3.5-5.1)
== END ==
PROVIDERS: ATTEND Internal Medicine
DX: E83.42 Hypomagnesemia (principal)

== ENCOUNTER → 2018-07-25 | Outpatient (REF) | payer MEDICARE, MEDICAID ==
[2018-07-25 09:03] LABS: HEMATOCRIT 34.5 % (36.0-47.0); HEMOGLOBIN 10.8 g/dl (12.0-15.5); MEAN CORPUSCULAR HEMOGLOBIN 27.3 pg (27.0-33.0); MEAN CORPUSCULAR HGB CONC 31.3 g/dl (32.0-36.5); MEAN CORPUSCULAR VOLUME 87.3 fl (80.0-96.0); PLATELET COUNT, AUTOMATED 250 10^3/uL (150-450); RED BLOOD COUNT 3.95 10^6/uL (4.00-5.40); WHITE BLOOD COUNT 10.3 10^3/uL (4.0-10.0)
[2018-07-25 09:30] LABS: CALCIUM LEVEL 8.7 MG/DL (8.8-10.2); CREATININE FOR GFR 0.99 MG/DL (0.55-1.30); GLOMERULAR FILTRATION RATE 58.2 (>39); POTASSIUM SERUM 4.7 MEQ/L (3.5-5.1)
== END ==
PROVIDERS: ATTEND Internal Medicine
DX: E83.42 Hypomagnesemia (principal); Z79.899 Other long term (current) drug therapy

== ENCOUNTER → 2018-08-29 | Outpatient (REF) | payer MEDICARE, MEDICAID ==
[~2018-08-29] MED LIST changes: -ASPI1TAB PO; +ASPI81TA26 PO; +HYDR-2541 PO; -HYDR25TAB PO; +NICO21DI3 TD; -NICO21PAT TD; +SENN1TAB41 PO; -SENN8.6T7 PO
[2018-08-29 09:19] LABS: HEMATOCRIT 37.1 % (36.0-47.0); HEMOGLOBIN 11.6 g/dl (12.0-15.5); MEAN CORPUSCULAR HEMOGLOBIN 27.4 pg (27.0-33.0); MEAN CORPUSCULAR HGB CONC 31.3 g/dl (32.0-36.5); MEAN CORPUSCULAR VOLUME 87.7 fl (80.0-96.0); PLATELET COUNT, AUTOMATED 256 10^3/uL (150-450); RED BLOOD COUNT 4.23 10^6/uL (4.00-5.40); WHITE BLOOD COUNT 8.6 10^3/uL (4.0-10.0)
[2018-08-29 09:33] LABS: BLOOD UREA NITROGEN 17 MG/DL (7-18); CALCIUM LEVEL 8.6 MG/DL (8.8-10.2); CARBON DIOXIDE LEVEL 21 MEQ/L (21-32); CHLORIDE LEVEL 109 MEQ/L (98-107); CREATININE FOR GFR 0.95 MG/DL (0.55-1.30); GLOMERULAR FILTRATION RATE > 60.0 (>39); GLUCOSE, FASTING 149 MG/DL (70-100); MAGNESIUM LEVEL 2.1 MG/DL (1.8-2.4); POTASSIUM SERUM 4.1 MEQ/L (3.5-5.1); SODIUM LEVEL 139 MEQ/L (136-145)
[2018-08-29 10:12] LABS: HEMOGLOBIN A1c 9.1 %
== END ==
PROVIDERS: ATTEND Internal Medicine
DX: E83.42 Hypomagnesemia (principal); E11.9 Type 2 diabetes mellitus without complications

== ENCOUNTER → 2018-10-24 | Outpatient (REF) | payer MEDICARE, MEDICAID ==
[2018-10-24 09:35] LABS: HEMATOCRIT 36.7 % (36.0-47.0); HEMOGLOBIN 11.5 g/dl (12.0-15.5); MEAN CORPUSCULAR HEMOGLOBIN 27.8 pg (27.0-33.0); MEAN CORPUSCULAR HGB CONC 31.3 g/dl (32.0-36.5); MEAN CORPUSCULAR VOLUME 88.9 fl (80.0-96.0); PLATELET COUNT, AUTOMATED 247 10^3/uL (150-450); RED BLOOD COUNT 4.13 10^6/uL (4.00-5.40); WHITE BLOOD COUNT 9.8 10^3/uL (4.0-10.0)
[2018-10-24 09:50] LABS: CALCIUM LEVEL 8.9 MG/DL (8.8-10.2); CREATININE FOR GFR 1.17 MG/DL (0.55-1.30); POTASSIUM SERUM 4.6 MEQ/L (3.5-5.1)
== END ==
PROVIDERS: ATTEND Internal Medicine
DX: E83.42 Hypomagnesemia (principal)

== ENCOUNTER → 2018-11-28 | Outpatient (REF) | payer MEDICARE, MEDICAID ==
[2018-11-28 08:23] LABS: HEMATOCRIT 37.6 % (36.0-47.0); HEMOGLOBIN 11.9 g/dl (12.0-15.5); MEAN CORPUSCULAR HEMOGLOBIN 27.7 pg (27.0-33.0); MEAN CORPUSCULAR HGB CONC 31.6 g/dl (32.0-36.5); MEAN CORPUSCULAR VOLUME 87.6 fl (80.0-96.0); PLATELET COUNT, AUTOMATED 244 10^3/uL (150-450); RED BLOOD COUNT 4.29 10^6/uL (4.00-5.40); WHITE BLOOD COUNT 9.9 10^3/uL (4.0-10.0)
[2018-11-28 08:50] LABS: CALCIUM LEVEL 9.1 MG/DL (8.8-10.2); CREATININE FOR GFR 0.98 MG/DL (0.55-1.30); GLOMERULAR FILTRATION RATE 58.9 (>39); MAGNESIUM LEVEL 2.2 MG/DL (1.8-2.4); POTASSIUM SERUM 4.6 MEQ/L (3.5-5.1)
[2018-11-28 10:18] LABS: HEMOGLOBIN A1c 9.6 %
== END ==
PROVIDERS: ATTEND Internal Medicine
DX: E83.42 Hypomagnesemia (principal); Z79.899 Other long term (current) drug therapy

== ENCOUNTER → 2018-12-26 | Outpatient (REF) | payer MEDICARE, MEDICAID ==
[2018-12-26 11:27] LABS: HEMATOCRIT 36.4 % (36.0-47.0); HEMOGLOBIN 11.5 g/dl (12.0-15.5); MEAN CORPUSCULAR HEMOGLOBIN 27.6 pg (27.0-33.0); MEAN CORPUSCULAR HGB CONC 31.6 g/dl (32.0-36.5); MEAN CORPUSCULAR VOLUME 87.3 fl (80.0-96.0); PLATELET COUNT, AUTOMATED 254 10^3/uL (150-450); RED BLOOD COUNT 4.17 10^6/uL (4.00-5.40); WHITE BLOOD COUNT 11.8 10^3/uL (4.0-10.0)
[2018-12-26 11:59] LABS: CALCIUM LEVEL 9.1 MG/DL (8.8-10.2); CREATININE FOR GFR 1.09 MG/DL (0.55-1.30); POTASSIUM SERUM 4.5 MEQ/L (3.5-5.1)
== END ==
PROVIDERS: ATTEND Internal Medicine
DX: E83.42 Hypomagnesemia (principal)

== ENCOUNTER → 2019-01-23 | Outpatient (REF) | payer MEDICARE, MEDICAID ==
[2019-01-23 08:59] LABS: HEMATOCRIT 37.9 % (36.0-47.0); HEMOGLOBIN 11.9 g/dl (12.0-15.5); MEAN CORPUSCULAR HEMOGLOBIN 27.7 pg (27.0-33.0); MEAN CORPUSCULAR HGB CONC 31.4 g/dl (32.0-36.5); MEAN CORPUSCULAR VOLUME 88.1 fl (80.0-96.0); PLATELET COUNT, AUTOMATED 245 10^3/uL (150-450); WHITE BLOOD COUNT 10.9 10^3/uL (4.0-10.0)
[2019-01-23 09:19] LABS: CALCIUM LEVEL 9.1 MG/DL (8.8-10.2); CREATININE FOR GFR 1.06 MG/DL (0.55-1.30); GLOMERULAR FILTRATION RATE 53.7 (>39); MAGNESIUM LEVEL 1.8 MG/DL (1.8-2.4); POTASSIUM SERUM 4.6 MEQ/L (3.5-5.1)
== END ==
PROVIDERS: ATTEND Internal Medicine
DX: E83.42 Hypomagnesemia (principal)

== ENCOUNTER → 2019-02-27 | Outpatient (REF) | payer MEDICARE, MEDICAID ==
[2019-02-27 10:06] LABS: HEMATOCRIT 36.7 % (36.0-47.0); HEMOGLOBIN 11.4 g/dl (12.0-15.5); MEAN CORPUSCULAR HEMOGLOBIN 27.5 pg (27.0-33.0); MEAN CORPUSCULAR HGB CONC 31.1 g/dl (32.0-36.5); MEAN CORPUSCULAR VOLUME 88.4 fl (80.0-96.0); PLATELET COUNT, AUTOMATED 259 10^3/uL (150-450); RED BLOOD COUNT 4.15 10^6/uL (4.00-5.40); WHITE BLOOD COUNT 9.8 10^3/uL (4.0-10.0)
[2019-02-28 08:52] LABS: HEMOGLOBIN A1c 8.7 %
== END ==
PROVIDERS: ATTEND Internal Medicine
DX: E83.42 Hypomagnesemia (principal); Z79.899 Other long term (current) drug therapy

== ENCOUNTER → 2019-03-27 | Outpatient (REF) | payer MEDICARE, MEDICAID ==
[2019-03-27 09:04] LABS: HEMATOCRIT 36.7 % (36.0-47.0); HEMOGLOBIN 11.5 g/dl (12.0-15.5); MEAN CORPUSCULAR HEMOGLOBIN 27.6 pg (27.0-33.0); MEAN CORPUSCULAR HGB CONC 31.3 g/dl (32.0-36.5); PLATELET COUNT, AUTOMATED 264 10^3/uL (150-450); RED BLOOD COUNT 4.17 10^6/uL (4.00-5.40); WHITE BLOOD COUNT 9.4 10^3/uL (4.0-10.0)
[2019-03-27 09:27] LABS: CALCIUM LEVEL 9.1 MG/DL (8.8-10.2); CREATININE FOR GFR 1.04 MG/DL (0.55-1.30); GLOMERULAR FILTRATION RATE 54.8 (>39); MAGNESIUM LEVEL 2.1 MG/DL (1.8-2.4); POTASSIUM SERUM 4.5 MEQ/L (3.5-5.1)
== END ==
PROVIDERS: ATTEND Internal Medicine
DX: E83.42 Hypomagnesemia (principal)

== ENCOUNTER → 2019-04-08 | Outpatient (REF) | payer MEDICARE, MEDICAID | PROVIDERS: ATTEND Internal Medicine | DX: Z79.899 Other long term (current) drug therapy (principal) ==

== ENCOUNTER → 2019-05-02 | Outpatient (REF) | payer MEDICARE, MEDICAID ==
[2019-05-02 12:52] LABS: HEMATOCRIT 37.8 % (36.0-47.0); HEMOGLOBIN 11.7 g/dl (12.0-15.5); MEAN CORPUSCULAR HEMOGLOBIN 27.4 pg (27.0-33.0); MEAN CORPUSCULAR VOLUME 88.5 fl (80.0-96.0); PLATELET COUNT, AUTOMATED 255 10^3/uL (150-450); RED BLOOD COUNT 4.27 10^6/uL (4.00-5.40); WHITE BLOOD COUNT 9.6 10^3/uL (4.0-10.0)
[2019-05-02 13:16] LABS: CALCIUM LEVEL 8.7 MG/DL (8.8-10.2); CREATININE FOR GFR 1.2 MG/DL (0.55-1.30); GLOMERULAR FILTRATION RATE 46.5 (>39); POTASSIUM SERUM 4.8 MEQ/L (3.5-5.1)
== END ==
PROVIDERS: ATTEND Internal Medicine
DX: E83.42 Hypomagnesemia (principal)

== ENCOUNTER → 2019-05-13 | Outpatient (REF) | payer MEDICARE, MEDICAID | PROVIDERS: ATTEND Internal Medicine | DX: E11.9 Type 2 diabetes mellitus without complications (principal); Z79.899 Other long term (current) drug therapy ==

== ENCOUNTER 2019-05-30 08:03 | Inpatient (IN) | payer MEDICARE, MEDICAID ==
[~2019-05-30] VITALS: Ht 152.4 cm; Wt 61.0 kg
[2019-05-30] VITALS (8 sets, daily range): BP systolic 90–162; BP diastolic 49–95; O2SAT 90
[2019-05-30] MEDS ORDERED: IPRATROPIUM 0.5MG/ALBUTEROL 2.5MG INH SOL UD 3ML (DUONEB)(J7620) NEB ONE (08:15)
[2019-05-30] MEDS ORDERED: GLIP5TAB8 PO (08:35)
[2019-05-30] MEDS ORDERED: ENEMENE PR (08:35)
[2019-05-30] MEDS ORDERED: ATOR40TA75 PO (08:35)
[2019-05-30] MEDS ORDERED: APAP325T4 PO (08:35)
[2019-05-30] MEDS ORDERED: FLON1SPR (08:35)
[2019-05-30] MEDS ORDERED: ALBU83IN INH (08:35)
[2019-05-30] MEDS ORDERED: MILKSUS3 PO (08:35)
[2019-05-30] MEDS ORDERED: LISI-1046 PO (08:35)
[2019-05-30] MEDS ORDERED: ASPI81TA26 PO (08:35)
[2019-05-30] MEDS ORDERED: ASPE16CR TOP (08:35)
[2019-05-30] MEDS ORDERED: LOPE2CAP PO (08:35)
[2019-05-30] MEDS ORDERED: BISA10SU27 PR (08:35)
[2019-05-30] MEDS ORDERED: ACET-907 PO (08:35)
[2019-05-30] MEDS ORDERED: QUES4POW PO (08:35)
[2019-05-30] MEDS ORDERED: LEXA5TAB13 PO (08:35)
[2019-05-30] MEDS ORDERED: LABE200T32 PO (08:35)
--- NOTE | 2019-05-30 08:39 | REP ---
Portable chest, 08:24 a.m., single AP view with the patient sitting: Comparison is the portable chest dated 04/04/2017. There is a large right upper lobe infiltrate as an interval change. No pleural effusion. The right hemidiaphragm is elevated as an interval change. Cardiac size is normal. The vicki, mediastinum, skeletal structures are unremarkable. Impression: Large right upper lobe infiltrate. Interval elevation of the right hemidiaphragm. Electronically Signed by Glenroy Marion MD 05/30/2019 08:30 A
[2019-05-30] MEDS ORDERED: cefTRIAXone SOD 2 GM in D5W MINI-BAG PLUS 50 ML IV ONE (08:45)
[2019-05-30 08:50] LABS: VENOUS BASE EXCESS -6.5 (-2.0-2.0); VENOUS HCO3 19.1 MEQ/L (23.0-27.0); VENOUS O2 SATURATION 97.1 % (60.0-80.0); VENOUS PARTIAL PRESSURE CO2 38.5 mmHg (38.0-50.0); VENOUS PARTIAL PRESSURE O2 93.3 mmHg (30.0-50.0); VENOUS PH 7.313 UNITS (7.330-7.430); VENOUS STANDARD HCO3 19.1 MEQ/L; VENOUS TOTAL CO2 20.3 MEQ/L (24.0-28.0)
[2019-05-30 08:58] LABS: BASO % 0.3 % (0.0-1.0); EOS # 0.1 10^3/uL (0.0-0.5); EOS % 0.4 % (0.0-3.0); HEMATOCRIT 38.8 % (36.0-47.0); HEMOGLOBIN 12.1 g/dl (12.0-15.5); LYMPH # 1.2 10^3/uL (1.5-5.0); LYMPH % 7.4 % (24.0-44.0); MEAN CORPUSCULAR HEMOGLOBIN 27.3 pg (27.0-33.0); MEAN CORPUSCULAR HGB CONC 31.2 g/dl (32.0-36.5); MEAN CORPUSCULAR VOLUME 87.6 fl (80.0-96.0); MONO # 0.9 10^3/uL (0.0-0.8); NEUTROPHILS # 13.4 10^3/uL (1.5-8.5); NEUTROPHILS % 85.3 % (36.0-66.0); PLATELET COUNT, AUTOMATED 374 10^3/uL (150-450); RED BLOOD COUNT 4.43 10^6/uL (4.00-5.40); WHITE BLOOD COUNT 15.7 10^3/uL (4.0-10.0)
[2019-05-30 09:05] LABS: INR 1.31
[2019-05-30 09:35] LABS: ALBUMIN 2.8 GM/DL (3.2-5.2); BILIRUBIN,DIRECT 0.1 MG/DL (0.0-0.2); BILIRUBIN,TOTAL 0.4 MG/DL (0.2-1.0); CK-MB VALUE MASS 5.9 NG/ML (<3.6); CREATININE FOR GFR 1.06 MG/DL (0.55-1.30); GLOMERULAR FILTRATION RATE 53.7 (>39); MB/CK RELATIVE INDEX 2.41 (< OR =4); POTASSIUM SERUM 5.1 MEQ/L (3.5-5.1); THYROID STIMULATING HORMONE 0.291 uIU/ML (0.358-3.740); TOTAL PROTEIN 6.9 GM/DL (6.4-8.2); TROPONIN I 0.48 NG/ML (< 0.10)
[2019-05-30] MEDS ORDERED: MOM 30ML SUSPENSION UDC PO PRN (11:00)
[2019-05-30] MEDS ORDERED: FLEET ENEMA PR PRN (11:00)
[2019-05-30] MEDS ORDERED: BISACODYL 10 MG SUPP PR PRN (11:00)
[2019-05-30] MEDS ORDERED: LOPERAMIDE 2 MG CAPLET PO PRN (11:00)
[2019-05-30] MEDS ORDERED: LIDOCAINE 4% CREAM 5GM (LMX4) TOP ONE (11:00)
[2019-05-30] MEDS: HumaLOG INSULIN (NovoLOG) PER UNIT SC SCH ×4 (12:00→21:00)
[2019-05-30] MEDS ORDERED: ANALGESIC BALM CRM 120 GM TOP PRN (12:00)
[2019-05-30] MEDS ORDERED: DEXTROSE 50% 50 ML SYRINGE IV PRN (12:15)
[2019-05-30] MEDS ORDERED: GLUCOSE 4 GM CHEW TABLET PO PRN (12:15)
[2019-05-30] MEDS ORDERED: GLUCAGON FOR INJ 1 MG VIAL (J1610) SC PRN (12:15)
[2019-05-30] MEDS: AZITHROMYCIN INJ 500 MG, VIAL MATE ADAPTER 1 EACH in D5W 250 ML IV SCH (12:46)
[2019-05-30] MEDS: ASPIRIN 81 MG ENTERIC TAB PO SCH (12:47)
[2019-05-30] MEDS: ESCITALOPRAM OXALATE 5MG TABLET (LEXAPRO) PO SCH (12:55)
[2019-05-30] MEDS: guaiFENesin ER 600 MG TAB PO SCH ×2 (12:56→20:59)
[2019-05-30] MEDS: HEPARIN SOD (PORCINE) 5000 UNITS/ML VIAL (J1644 PER 1000UNITS) SC SCH ×2 (12:56→21:01)
--- NOTE | 2019-05-30 13:42 | HPE ---
DATE OF ADMISSION: 05/30/2019 PRIMARY CARE PROVIDER: Dr. Michael Hendrickson CHIEF COMPLAINT: Trouble breathing. HISTORY OF PRESENT ILLNESS: This is a pleasant 78-year-old female with a pertinent past medical history of multiple CVAs, history of patent foramen ovale, who presented to our emergency room for shortness of breath, which started the night prior to presentation. She is accompanied by her son, who supplemented the history. The patient is a good historian. She states that she current lives at [facility]. She has been able to do her daily functions with no problems. Last night when she was sleeping, she was woken up suddenly because she had trouble breathing. She states that she did not have any chest pain, fevers, chills, cough production, or upper respiratory like symptoms. She just notes that she had trouble breathing, but she was unable to catch her breath. She states that she is normally on room air, but yesterday she had to be placed on nasal cannula prior to being transferred to [facility] emergency room for further evaluation. She denies any palpitations, lightheadedness, dizziness, headaches, vision changes, nausea, vomiting, diarrhea, constipation, abdominal pain, burning on urination. She does admit to having a chronic Roblero, which she has had for the last year or so. She admits to being compliant with all of her medication and has not had any recent medication changes. She admits that she is currently wheelchair bound, is able to stand and pivot to go to the bathroom but recently she has been a little bit more weaker than normal. She does also admit to having some low back pain, that started 3 weeks prior. She is unsure if it is secondary to sitting in a wheelchair. She currently does take acetaminophen as needed for pain. In the emergency room, pulse was tachycardic at 117, respiration 20, blood pressure 139/71 with a MAP of 93, pulse oximetry of 92% on room air. She had to be placed on nasal cannula and saturated at 94% on 5 liters. Laboratories showed that she has a slight leukocytosis of 15.7 with a Pro BNP of 4583 with a BUN of 39 and creatinine of 1.06. Her TSH was also low at 0.29. Chest x-ray showed a large right upper lobe infiltrate. The hospitalist team was then called for admission for pneumonia. HISTORY OF PRESENT ILLNESS: 1. Multiple CVAs. 2. History of PFO with no intervention. 3. Carotid and aortic stenosis. 4. Diabetes. 5. Hypercholesterolemia. 6. Hypertension. PAST SURGICAL HISTORY: None. SOCIAL HISTORY: The patient she is a former smoker who had a 50 pack year smoking history but quit in June 2015. She denies any alcohol or drug use. She is a current resident of [facility]. She has a son who is her healthcare proxy, Vimal, who is at bedside. She is a code status of DO NOT RESUSCITATE, DO NOT INTUBATE. FAMILY HISTORY: Reviewed and noncontributory. PHYSICAL EXAMINATION: VITAL SIGNS: Temperature 97.2, pulse 120, respirations 20, blood pressure 139/71 (93), pulse oximetry 94% on 5 liters nasal cannula. GENERAL: This is a very pleasant 78-year-old elderly female who is lying comfortably in bed, does not appear in acute distress. She is laying on her right side and propping her left side with pillows. She is alert and oriented. Speaking in complete sentences. She is using accessory muscles to breathe with her belly. No neck muscles are being used. HEENT: Atraumatic, normocephalic. Pupils are equal, round and reactive. Mucous membranes appear dry. No jugular venous distention (JVD) noted. No lymphadenopathy. Trachea is midline. LUNGS: Tachycardic rate. No audible murmurs, rubs or gallops. S1, S2 sounds are normal. Slight muffled due to the rhonchorous breath sounds in the upper airways. Right lobe has diminished breath sounds with some bibasilar crackles noted as well. Accessory muscle use with belly, no neck accessory muscles are being used. ABDOMEN: Soft, nontender. Positive bowel sounds in all four quadrants. EXTREMITIES: No significant pitting edema. Capillary refill is normal. SKIN: Intact and warm to touch. Skin appears slightly tenting, appears dry as well. NEUROLOGIC: Alert and oriented times three. No focal deficits noted. No ataxia. LABORATORY DATA: Hematology: WBC 15.7, hemoglobin 12.1, hematocrit 38.3, platelets 374. Chemistry: Sodium 142, potassium 5.4, chloride 111, carbon dioxide 19, BUN 39, creatinine 0.06, fasting glucose 270, lactic acid 1.6. AST 21, ALT 19, alkaline phosphatase 151, troponin 0.48, Pro BNP 4583, TSH 0.29. Coagulation: INR 1.31. Venous blood gas showed pH 7.313. Chest x-ray showed right lung upper lobe infiltrate, interval elevation of the right hemidiaphragm. EKG in the emergency room showed a ventricular rate of 127 beats per minute, WV interval of 172 milliseconds, QTC of 376 seconds. She is sinus tachycardic with a left axis deviation with low QRS voltages in the precordial leads, possible left anterior fascicular block, which cannot be seen on her old EKG, which is questionable. We will monitor with telemetry. ASSESSMENT AND PLAN: This is a very pleasant 78-year-old female with multiple comorbidities, who presented to our emergency room for shortness of breath since 05/29/2019 evening. PLAN: 1. Acute Hypoxic Respiratory Failure secondary to right lobe pneumonia. Her CURB-65 is 2 points, moderate risk group of 6.8%, so we will do inpatient treatment. She had gotten a one time dose of ceftriaxone 2 grams in the emergency room. We will continue with ceftriaxone and azithromycin while admitted. Her QTC on the electrocardiogram (EKG) done in the emergency room showed 376, but there was no QT prolongation and azithromycin can be continued. We put her on pulmonary toilet by adding incentive spirometry and lung expansion therapy. We will also test for urine Streptococcal pneumoniae and Legionella. We have gotten sputum culture to help with sputum culture. We will give her some Mucinex because she does have a wet cough that she is unable to produce. We will place her on aspiration risk as well. 2. Elevated troponin. Her troponin in the emergency room was 0.48. We will trend the troponin. The patient denies any chest pain. We will place her on telemetry because she has tachyarrhythmias. Pending how the troponins look, we will consider getting an echocardiogram. She is a DO NOT RESUSCITATE, DO NOT INTUBATE. We will need to discuss with the patient if there is continued elevation of the troponin, if she needs PCI or just echocardiogram. At this current time, we will monitor her. 3. History of hypertension. We will continue with her Lisinopril 2.5 mg at night, as well as Labetalol 200 mg by mouth twice a day. 4. History of depression and anxiety. Continue Abilify 5 mg by mouth daily. 5. History of hyperlipidemia. Continue with atorvastatin 40 mg by mouth at night. 6. History of multiple CVAs. We will continue with aspirin 81 mg by mouth daily. 7. Decreased TSH. Her TSH was 0.291 on admission. She denies being on levothyroxine or any thyroid medications in the past. We will get a free T4 and followup. I believe that the tachyarrhythmia is secondary to problem number one. 8. Low back pain. She has this acute in the last 3 weeks. She does have Tylenol 650 mg for pain. We will continue with this pain regimen. If the pain does not resolve or continues to persist even with pain management and after physical therapy (PT) and occupational therapy (OT), can consider getting imaging of the low back. 9. History of diabetes. We will hold her home diabetes medication and place her on insulin sliding scale with before food and nightly coverage. 10. Deep vein thrombosis (DVT) prophylaxis. TEDS, sequentials and heparin. 11. Diet. Low fat diet with consistent carbohydrates. DISPOSITION: The patient will be admitted to medical/surgical with telemetry. Expect at least two midnights of admission. MTDD
[2019-05-30] MEDS: LABETALOL 200 MG TAB PO SCH ×2 (13:51→20:42)
[2019-05-30] MEDS ORDERED: IPRATROPIUM 0.5MG/ALBUTEROL 2.5MG INH SOL UD 3ML (DUONEB)(J7620) INH SCH (14:00)
[2019-05-30 14:04] LABS: CK-MB VALUE MASS 5.8 NG/ML (<3.6); MB/CK RELATIVE INDEX 3.05 (< OR =4); TROPONIN I 0.76 NG/ML (< 0.10)
[2019-05-30] MEDS ORDERED: ASPIRIN 325 MG TAB FT STA (15:15)
--- NOTE | 2019-05-30 15:21 | ECGEPIP ---
[facility] - ED Test Date: 2019-05-30 Pat Name: JOSHUA PATTERSON Department: Room: - Gender: Female Follow Up Specialist: francisca : 1940 Requested By: Anayeli Yepez Order Number: [id number] Reading MD: Jono Fields Measurements Intervals [place] Rate: 127 P: 12 MO: 172 QRS: -72 QRSD: 73 T: 76 QT: 301 QTc: 438 Interpretive Statements SINUS TACHYCARDIA INDETERMINATE AXIS LOW QRS VOLTAGE throughoutLEFT ANTERIOR FASCICULAR BLOCK INFERIOR MYOCARDIAL INFARCTION, PROBABLY OLD Delayed anterior R wave progression Nonspecific ST-T wave abnormalities Electronically Signed on 05-30-2019 15:21:13 EST by Jono Fields
[2019-05-30 16:43] LABS: FREE T4 1.64 NG/DL (0.76-1.46)
[2019-05-30] MEDS: CHOLESTYRAMINE 4 GM PWD PKT PO SCH (17:03)
[2019-05-30] MEDS ORDERED: CLOPIDOGREL 300 MG TAB (PLAVIX) PO STA (17:09)
[2019-05-30 19:53] LABS: CK-MB VALUE MASS 6.4 NG/ML (<3.6); MB/CK RELATIVE INDEX 3.7 (< OR =4); TROPONIN I 1.01 NG/ML (< 0.10)
--- NOTE | 2019-05-30 20:55 | ECHO ---
DATE OF PROCEDURE: 05/30/2019 REFERRING PHYSICIAN: Dr. Pepe INDICATION: Abnormal EKG. HEIGHT: 152 cm WEIGHT: 67 kg DIMENSIONS: IVS: 0.8 LV: 3.8 LVPW: 0.8 Aorta: 3.2 LA: 3.0 IVC: 1.4 Mitral E wave velocity: 44, A wave: 79 E prime septal: 3.2 E prime lateral: 4.5 FINDINGS: The study is of fair technical quality. The patient is in sinus rhythm. Left ventricle is normal size. There appears to be wall motion abnormality involving distal anterior wall, distal septum, apex, distal inferior wall and distal lateral wall. These segments appear to be hypokinetic. Overall ejection fraction (EF) though is only mildly reduced, I would estimate around 50%. This is based on very limited views though. Right ventricle appears to be normal size and systolic function. Both atria appear to be grossly normal. There is sclerotic aortic valve. It has three cusps and preserved mobility. Mitral, tricuspid and pulmonic valves appear grossly normal. No pericardial effusion is noted. Inferior vena cava is normal size. Aortic root is normal. Aortic arch and abdominal aorta were not well visualized. Doppler interrogation reveals mild aortic insufficiency. There is no significant mitral valvular disease. There is trace tricuspid insufficiency. Calculated pulmonary artery pressure is in 30s corresponding to mild pulmonary hypertension. Pulmonic valve is functionally competent. Mitral inflow pattern and tissue Doppler imaging of mitral annulus reveal grade 1 diastolic dysfunction. CONCLUSIONS 1. Study is of fair technical quality. The patient is in sinus rhythm. 2. Normal LV size with wall motion abnormality involving distal segments of left ventricle and apex and overall estimated EF around 50%. This is based on poor visualization. Grade 1 diastolic dysfunction. 3. No hemodynamically significant valvular disease. 4. Likely normal central venous pressure and mild pulmonary hypertension. COMMENT Subacute bacterial endocarditis (SBE) prophylaxis is not recommended.
[2019-05-30] MEDS: ATORVASTATIN 20 MG TAB PO SCH (20:59)
[2019-05-30] MEDS ORDERED: LISINOPRIL *2.5 MG* TAB PO SCH (21:00)
[2019-05-30] MEDS: ACETAMINOPHEN TAB 650MG DOSE (2X325MG) PO PRN (21:00)
[2019-05-30] MEDS: FLUTICASONE PROP 0.05% NASAL SPRAY 16 GM (FLONASE) SCH (21:03)
[2019-05-30] MEDS: LEVALBUTEROL 1.25 MG/0.5 ML CONCENTRATE NEB INH PRN (21:11)
[2019-05-30] MEDS ORDERED: FUROSEMIDE 20 MG/2 ML VIAL (J1940) IV ONE (22:15)
--- NOTE | 2019-05-30 22:17 | IPNPDOC ---
Text Note Date of Service The patient was seen on 05/30/19. NOTE I was asked to eval the pt bc of respiratory distress. Currently the patient is listless, and having difficulties talking. Her SBP is 108 She has expiratory crackles' Plan: transfer to PCU for more frequent vitals Q4H, neurochecks Q4H, & lasix 10mg IV VS,Fishbone, I+O VS, Fishbone, I+O Laboratory Tests 05/30/19 08:33 Vital Signs Date Time Temp Pulse Resp B/P (MAP) Pulse Ox O2 Delivery O2 Flow Rate FiO2 05/30/19 20:42 102 103/55 05/30/19 18:03 22 95 Nasal Cannula 4.0 05/30/19 14:00 98.1 YOVANY CEJA MD May 30, 2019 22:17
[2019-05-30 23:21] LABS: ABG HCO3 22.3 MEQ/L (22.0-26.0); ABG PARTIAL PRESSURE CO2 45.6 mmHg (35.0-45.0); ABG PARTIAL PRESSURE O2 107.7 mmHg (75.0-100.0); ABG STANDARD HCO3 21.2 MEQ/L (22.0-26.0); ABG TOTAL CO2 23.7 MEQ/L (23.0-31.0); ABG pH (ARTERIAL) 7.308 UNITS (7.350-7.450)
[2019-05-31] VITALS (30 sets, daily range): BP systolic 121–178; BP diastolic 61–87; O2SAT 81–96
[2019-05-31] MEDS ORDERED: SLF 3 ML SYR IV PRN (01:30)
[2019-05-31 01:54] LABS: CK-MB VALUE MASS 5.5 NG/ML (<3.6); MB/CK RELATIVE INDEX 3.62 (< OR =4); TROPONIN I 0.85 NG/ML (< 0.10)
[2019-05-31 06:02] LABS: HEMATOCRIT 37.6 % (36.0-47.0); HEMOGLOBIN 11.4 g/dl (12.0-15.5); MEAN CORPUSCULAR HEMOGLOBIN 26.6 pg (27.0-33.0); MEAN CORPUSCULAR HGB CONC 30.3 g/dl (32.0-36.5); MEAN CORPUSCULAR VOLUME 87.6 fl (80.0-96.0); PLATELET COUNT, AUTOMATED 359 10^3/uL (150-450); RED BLOOD COUNT 4.29 10^6/uL (4.00-5.40); WHITE BLOOD COUNT 13.2 10^3/uL (4.0-10.0)
[2019-05-31 06:27] LABS: CALCIUM LEVEL 8.9 MG/DL (8.8-10.2); CREATININE FOR GFR 1.15 MG/DL (0.55-1.30); GLOMERULAR FILTRATION RATE 48.8 (>39); MAGNESIUM LEVEL 2.2 MG/DL (1.8-2.4); POTASSIUM SERUM 4.2 MEQ/L (3.5-5.1)
[2019-05-31] MEDS: SLF 3 ML SYR IV SCH ×3 (06:54→21:04)
[2019-05-31] MEDS: HEPARIN SOD (PORCINE) 5000 UNITS/ML VIAL (J1644 PER 1000UNITS) SC SCH ×3 (06:54→21:00)
[2019-05-31] MEDS ORDERED: cefTRIAXone SOD 1 GM in D5W MINI-BAG PLUS 50 ML IV SCH (09:00)
[2019-05-31] MEDS: guaiFENesin ER 600 MG TAB PO SCH (09:00)
[2019-05-31] MEDS ORDERED: LEVEMIR (INSULIN DETEMIR) 1 UNITS/0.01ML SC SCH (09:00)
[2019-05-31] MEDS: HumaLOG INSULIN (NovoLOG) PER UNIT SC SCH ×4 (09:08→21:00)
[2019-05-31] MEDS: ASPIRIN 81 MG ENTERIC TAB PO SCH (09:09)
[2019-05-31] MEDS: CLOPIDOGREL 75 MG TAB PO SCH (09:09)
[2019-05-31] MEDS: LABETALOL 200 MG TAB PO SCH ×2 (09:09→21:03)
[2019-05-31] MEDS: ESCITALOPRAM OXALATE 5MG TABLET (LEXAPRO) PO SCH (09:09)
[2019-05-31] MEDS: CHOLESTYRAMINE 4 GM PWD PKT PO SCH ×2 (10:00→18:00)
[2019-05-31] MEDS: ACETAMINOPHEN TAB 650MG DOSE (2X325MG) PO PRN (11:01)
--- NOTE | 2019-05-31 11:16 | IPNPDOC ---
Date Seen The patient was seen on 05/31/19. Progress Note SUBJECTIVE: Patient seen and examined this morning. Overnight, patient did desat to 84% on 4 L and he transferred to PCU. She is currently on Vapotherm stating appropriately for her. She is in good spirits this morning. She is tolerating her breakfast well. She denies chest pain, worsening shortness breath, nausea, vomiting, fevers, or chills OBJECTIVE PHYSICAL EXAMINATION: VITAL SIGNS: Please see below. GENERAL: Pleasant 78-year-old female sitting up in bed awake alert oriented speaking in complete sentences no acute distress, eating breakfast HEENT: Atraumatic, normocephalic, pupils equal round reactive, mucous membranes appear moist with no JVD. No lymphadenopathy trachea is midline. CARDIOVASCULAR: S1 S2 tachycardic rate no additional heart sounds appreciated. RESPIRATORY: Upper respiratory lungs improving but continued to be rhonchorous. Continue to belly breathing but decreasing in rate ABDOMINAL: Bowel sounds in all 4 quadrants, nontender and soft EXTREMITIES: No lower extremity edema, cyanosis or clubbing. NEUROLOGICAL: no gross focal deficits appreciated PSYCHOLOGICAL: Appropriate LABORATORY DATA, MICROBIOLOGY: Please see below. IMAGING STUDIES: Chest x-ray 03/30/2020 Chest x-ray showed right lung upper lobe infiltrate, interval elevation of the right hemidiaphragm Echocardiogram: 05/31/2019 1. Study is of fair technical quality. The patient is in sinus rhythm. 2. Normal LV size with wall motion abnormality involving distal segments of left ventricle and apex and overall estimated EF around 50%. This is based on poor visualization. Grade 1 diastolic dysfunction. 3. No hemodynamically significant valvular disease. 4. Likely normal central venous pressure and mild pulmonary hypertension ASSESSMENT AND PLAN: This is a very pleasant 78-year-old female with multiple Comorbidities presented with shortness of breath PROBLEMS: 1. Acute Hypoxic Respiratory Failure secondary to right lobe pneumonia CURB-65: 2 points, inpatient treatment. -s/p ceftriaxone 2 grams in the ER -c/w ceftriaxone, azithromycin, Xopenex -c/w incentive spirometry, lung expansion therapy. Mucinex -urine Streptococcal pneumoniae Legionella pending and sputum culture -c/w Aspiration precaution. Will obtain bedside swallow -c/w Maintained O2 greater than 90% 2. Elevated troponin possible demand ischemia -trop peaked at 1.01 this morning and came down to 0.85. -c/w to deny any chest pain -c/w telemetry -Dr. Astudillo Consulted. Appreciate his recommendations for cardiac medications -c/w labetalol 200 mg twice a day, aspirin 81 mg daily, clopidogrel 75 mg daily, atorvastatin 40 mg 3. History of hypertension. -held home Lisinopril 2.5 mg -c/w Labetalol 200 mg by mouth twice a day -Will monitor 4. History of depression and anxiety. -c/w Lexapro 5mg mg by mouth daily. 5. History of hyperlipidemia. -c/w atorvastatin 40 mg 6. History of multiple CVAs. -c/w aspirin 81 mg 7. Decreased TSH possible Euthyroid sick v TSH -0.291 T4 slight elevated at 1.64. Will repeat today and will see if levothyroxine will need to started. -She denies being on levothyroxine or any thyroid medications in the past. 8. Low back pain -c/w Tylenol 650 mg for pain. -c/w physical therapy (PT) and occupational therapy (OT), 9. History of diabetes. -Continue to hold home diabetes patient -Sugars above 300 start Levemir 10 units daily and will monitor - c/w insulin sliding scale with before food and nightly coverage. 10. Diet. Low fat diet with consistent carbohydrates. DVT prophylaxis: Heparin BID DISPOSITION: Pending clinical improvement possibly more than 2 midnight VS, I&O, 24H, Arlet Vital Signs/I&O Vital Signs Date Time Temp Pulse Resp B/P (MAP) Pulse Ox O2 Delivery O2 Flow Rate FiO2 05/31/19 10:00 81 Nasal Cannula 20.0 50 05/31/19 09:09 118 170/87 05/31/19 07:39 98.3 24 I&O- Last 24 Hours up to 6 AM 05/31/19 06:00 Intake Total 845 ml Output Total 1210 ml Balance -365 ml Laboratory Data 24H LABS Laboratory Tests 2 05/30/19 12:24: Bedside Glucose (Misc Panel) 317H 05/30/19 13:19: Total Creatine Kinase 190, Creatine Kinase MB 5.8H, Creatine Kinase MB Relative Index 3.05, Troponin I 0.76#H 05/30/19 16:58: Bedside Glucose (Misc Panel) 362H 05/30/19 17:22: Troponin I 0.89H 05/30/19 19:17: Total Creatine Kinase 173, Creatine Kinase MB 6.4H, Creatine Kinase MB Relative Index 3.70, Troponin I 1.01H 05/30/19 19:50: Bedside Glucose (Misc Panel) 331H 05/30/19 23:15: Blood Gas Bicarbonate Standard 21.2L, Arterial Blood pH 7.308L, Arterial Blood Partial Pressure CO2 45.6H, Arterial Blood Partial Pressure O2 107.7H, Arterial Blood Total CO2 23.7, Arterial Blood HCO3 22.3, Arterial Blood Base Excess - 4.0L, Arterial Blood Oxygen Saturation 98.0 05/31/19 01:00: Total Creatine Kinase 152, Creatine Kinase MB 5.5H, Creatine Kinase MB Relative Index 3.62, Troponin I 0.85H 05/31/19 03:20: 05/31/19 05:22: Nucleated Red Blood Cells % (auto) 0.0, Anion Gap 10, Glomerular Filtration Rate 48.8, Calcium Level 8.9, Magnesium Level 2.2 CBC/BMP Laboratory Tests 05/31/19 05:22 Microbiology Microbiology 05/30/19 Blood Culture - Preliminary, Resulted No growth after 24 hours . All specim... 05/30/19 Respiratory Virus Panel (PCR) ([facility]) - Final, Complete 05/30/19 Blood Culture - Preliminary, Resulted No growth after 24 hours . All specim... Attending Note Attending Note Ms Castro was admitted yesterday with RUL PNA with SOB and hypoxemia also found to have troponinemia to 0.48 with an EKG with some q waves and LAFB but otherwise no without ST depressions or elevations. She was admitted to medicine and placed on ceftriaxone/azithromycin and her course was c/b 1. worsening hypoxemia now on HFNC 2. worsening troponinemia without chest pain or pressure with ongoing SOB with subsequent EKG showing 1mm ST elevations in inferior leads and 1mm ST depressions in the anterior leads, leading to a cardiology consult with Dr. Astudillo who suggested a stat echo, plavix load and consideration and c onversation with family about potential transfer to a PCI facility. The family after speaking with the patient, agreed to transfer for potential PCI but after discussion with [facility] interventionalist, he had low suspicion of an acute SD and thought it was all likely type NSTEMI 2/2 infection so he had us repeat serial trops and EKG that showed improvement and trops eventually downtrended, a nd she ended up staying inhouse and transferred from [facility] to [facility]. At this time, she remains on HFNC 20L at 50% and has no acute complaints and continues CFX/azithro and was otherwise afebrile and hemodynamically stable. Speech saw her this AM and suggested making her NPO until she can be assessed after she is downgraded from HFNC. We will stop the plavix at this time, continue the ASA and home labetalol, while we continue holding the ACEi at this time. TTE showed normal LV sixe, EF of 50%, wall motion abnormality involving distal segments of left ventricle and apex and grade 1 diastolic dysfunction. Will also follow up cardiology recs today. GME ATTESTATION GME ATTESTATION My faculty preceptor for this patient encounter was physically present during t he encounter and was fully available. All aspects of the patient interview, examination, medical decision making process, and medical care plan development were reviewed and approved by the faculty preceptor. The faculty preceptor is aware and concurs with the plan as stated in the body of this note and will attest to such by his/her cosignature. KIMMY WALTER DO May 31, 2019 11:16 HCERY CELESTE MD May 31, 2019 12:46
[2019-05-31 11:45] LABS: FREE T4 1.47 NG/DL (0.76-1.46); THYROID STIMULATING HORMONE 0.261 uIU/ML (0.358-3.740)
[2019-05-31] MEDS ORDERED: guaiFENesin SYRUP 200 MG/10 ML UDC PO PRN (12:30)
[2019-05-31] MEDS: AZITHROMYCIN INJ 500 MG, VIAL MATE ADAPTER 1 EACH in D5W 250 ML IV SCH (12:43)
--- NOTE | 2019-05-31 20:07 | ECGEPIP ---
[facility] Test Date: 2019-05-30 Pat Name: JOSHUA PATTERSON Department: Room: [place] [address] Gender: Female Video Editing Intern: LUCIO : 1940 Requested By: CHERY Murphy Order Number: [id number] Reading MD: Sarahi Lui Measurements Intervals [place] Rate: 95 P: 66 ND: 209 QRS: 21 QRSD: 72 T: 95 QT: 324 QTc: 409 Interpretive Statements SINUS RHYTHM POOR R WAVE PROGRESSION MINIMAL ST ELEVATION INFERIOR LEADS, CONSIDER ACUTE [place] SIMILAR TO 05/30/19 Electronically Signed on 05-31-2019 20:07:32 EST by Sarahi Lui
--- NOTE | 2019-05-31 20:09 | ECGEPIP ---
[facility] Test Date: 2019-05-30 Pat Name: JOSHUA PATTERSON Department: Room: [place] [address] Gender: Female Improvement Leader: AIXA : 1940 Requested By: CHERY Murphy Order Number: [id number] Reading MD: Sarahi Lui Measurements Intervals [place] Rate: 84 P: 63 IA: 184 QRS: -16 QRSD: 73 T: 104 QT: 347 QTc: 411 Interpretive Statements SINUS RHYTHM POOR R WAVE PROGRESSION MINIMAL INFERIOR WALL ST ELEVATION, CONSIDER VA MINIMAL CHANGE SINCE 14:51 SAME DAY Electronically Signed on 05-31-2019 20:09:06 EST by Sarahi Lui
--- NOTE | 2019-05-31 20:13 | ECGEPIP ---
[facility] Test Date: 2019-05-30 Pat Name: JOSHUA PATTERSON Department: Room: [place] [address] Gender: Female Package Delivery Driver: PAOLO : 1940 Requested By: YOVANY CEJA Order Number: [id number] Reading MD: Sarahi Lui Measurements Intervals [place] Rate: 97 P: 26 GA: 173 QRS: -45 QRSD: 76 T: 100 QT: 347 QTc: 441 Interpretive Statements SINUS RHYTHM POOR R WAVE PROGRESSION - CANNOT R/O WI CONSIDER INFERIOR WALL [place] SIMILAR TO 17:17 SAME DAY Electronically Signed on 05-31-2019 20:13:05 EST by Sarahi Lui
[2019-05-31] MEDS: ATORVASTATIN 20 MG TAB PO SCH (21:00)
[2019-05-31] MEDS: LISINOPRIL *2.5 MG* TAB PO SCH (21:03)
[2019-05-31] MEDS: FLUTICASONE PROP 0.05% NASAL SPRAY 16 GM (FLONASE) SCH (21:04)
[2019-05-31] MEDS ORDERED: FUROSEMIDE 20 MG/2 ML VIAL (J1940) IV ONE (23:30)
[2019-05-31 23:46] LABS: ABG BASE EXCESS -1.2 (-2.0-2.0); ABG HCO3 23.6 MEQ/L (22.0-26.0); ABG O2 SATURATION 96.7 % (95.0-99.0); ABG PARTIAL PRESSURE CO2 39.8 mmHg (35.0-45.0); ABG PARTIAL PRESSURE O2 83.1 mmHg (75.0-100.0); ABG STANDARD HCO3 23.4 MEQ/L (22.0-26.0); ABG TOTAL CO2 24.8 MEQ/L (23.0-31.0)
[2019-06-01] VITALS (24 sets, daily range): BP systolic 121–157; BP diastolic 59–179; O2SAT 87–99
[2019-06-01] MEDS: HEPARIN SOD (PORCINE) 5000 UNITS/ML VIAL (J1644 PER 1000UNITS) SC SCH ×3 (05:12→21:01)
[2019-06-01] MEDS: SLF 3 ML SYR IV SCH ×3 (05:14→21:01)
[2019-06-01 05:45] LABS: HEMATOCRIT 37.7 % (36.0-47.0); HEMOGLOBIN 11.4 g/dl (12.0-15.5); MEAN CORPUSCULAR HEMOGLOBIN 26.6 pg (27.0-33.0); MEAN CORPUSCULAR HGB CONC 30.2 g/dl (32.0-36.5); MEAN CORPUSCULAR VOLUME 87.9 fl (80.0-96.0); PLATELET COUNT, AUTOMATED 397 10^3/uL (150-450); RED BLOOD COUNT 4.29 10^6/uL (4.00-5.40); WHITE BLOOD COUNT 14.2 10^3/uL (4.0-10.0)
[2019-06-01 06:07] LABS: CALCIUM LEVEL 8.6 MG/DL (8.8-10.2); CREATININE FOR GFR 1.08 MG/DL (0.55-1.30); GLOMERULAR FILTRATION RATE 52.5 (>39); POTASSIUM SERUM 4.3 MEQ/L (3.5-5.1)
--- NOTE | 2019-06-01 06:42 | IPNPDOC ---
Text Note Date of Service The patient was seen on 06/01/19. NOTE Per d/w the patient's RN she was more lethargic overnight. Despite increasing her O2 that she is only sating at 87%. The patient reports feeling very tired but denies additional c/o. Lungs: using accessory muscles / trachea mid line / NC in place / diminished breath sounds on the right side. We will order a repeat chest x-ray this AM. VS,Fishbone, I+O VS, Fishbone, I+O Laboratory Tests 06/01/19 05:33 Vital Signs Date Time Temp Pulse Resp B/P (MAP) Pulse Ox O2 Delivery O2 Flow Rate FiO2 06/01/19 06:00 91 Nasal Cannula 20.0 60 06/01/19 04:00 96.7 93 26 143/179 (167) I&O- Last 24 Hours up to 6 AM 06/01/19 06:00 Intake Total 0 ml Output Total 500 ml Balance -500 ml YOVANY CEJA MD Jun 01, 2019 06:42
[2019-06-01] MEDS ORDERED: NS 1,000 ML IV SCH (08:00)
--- NOTE | 2019-06-01 08:28 | REP ---
Clinical: Decreased breath sounds. Comparison: 05/30/2019. Findings: Ill-defined areas of opacity involving the right hemithorax as well as diffuse chronic bilateral interstitial changes are similar to prior examination. Stable elevation to the right hemidiaphragm noted. Impression: Diffuse bilateral pleuroparenchymal changes (right greater than left) similar to prior examination. Electronically Signed by Gee Trujillo MD 06/01/2019 08:20 A
[2019-06-01] MEDS: LABETALOL 200 MG TAB PO SCH ×2 (09:00→20:06)
[2019-06-01] MEDS: CLOPIDOGREL 75 MG TAB PO SCH (09:00)
[2019-06-01] MEDS: ESCITALOPRAM OXALATE 5MG TABLET (LEXAPRO) PO SCH (09:00)
[2019-06-01] MEDS: ASPIRIN 81 MG ENTERIC TAB PO SCH (09:00)
[2019-06-01] MEDS: CHOLESTYRAMINE 4 GM PWD PKT PO SCH ×2 (09:19→17:04)
[2019-06-01] MEDS: PIPERACILLIN/TAZOBACTAM SOD 3.375 GM in D5W MINI-BAG PLUS 50 ML IV SCH ×3 (09:54→20:55)
[2019-06-01 11:18] LABS: C REACTIVE PROTEIN QUANTITATIV 7.05 MG/DL (0.00-0.30)
--- NOTE | 2019-06-01 11:31 | IPNPDOC ---
Date Seen The patient was seen on 06/01/19. Progress Note SUBJECTIVE: Patient seen and examined this morning. Overnight, she became lethargic while on Vapotherm 12 L and be increased to 20 L. They did a stat chest x-ray this morning that showed, diffuse bilateral pleural-parenchymal changes right greater than left. We did note yesterday while patient was eating a pured diet with increased coughing episodes she has been placed nothing by mouth, until a speech evaluation can be done. She is not happy, that she is unable to eat anything. She tolerated the lasix 10mg X1 this AM. She does complain being hungry, dry mouth but she denies chest pain or worsening shortness of breath, nausea, vomiting, fevers or chills. The patient does like to down play her symptoms though. OBJECTIVE PHYSICAL EXAMINATION: VITAL SIGNS: Please see below. GENERAL: Pleasant 78-year-old female sitting up in bed awake alert oriented speaking in complete sentences no acute distress, eating breakfast, HEENT: Atraumatic, normocephalic, pupils equal round reactive, dry mucous membr anes with no JVD. No lymphadenopathy trachea is midline. CARDIOVASCULAR: S1 S2 tachycardic rate no additional heart sounds appreciated. RESPIRATORY: Diminished breath sounds in the upper airways on the right, dullness to percussion in the right airway, bibasilar crackles and using upper accessory muscles to breath. Currently on 20 Flow rate on Vapotherm. ABDOMINAL: Bowel sounds in all 4 quadrants, nontender and soft EXTREMITIES: No lower extremity edema, cyanosis or clubbing. NEUROLOGICAL: no gross focal deficits appreciated PSYCHOLOGICAL: Appropriate LABORATORY DATA, MICROBIOLOGY: Please see below. IMAGING STUDIES: Chest x-ray 03/30/2020 Chest x-ray showed right lung upper lobe infiltrate, interval elevation of the right hemidiaphragm Echocardiogram: 05/31/2019 1. Study is of fair technical quality. The patient is in sinus rhythm. 2. Normal LV size with wall motion abnormality involving distal segments of left ventricle and apex and overall estimated EF around 50%. This is based on poor visualization. Grade 1 diastolic dysfunction. 3. No hemodynamically significant valvular disease. 4. Likely normal central venous pressure and mild pulmonary hypertension Chest Xray 06/01/2019 Impression: Diffuse bilateral pleuroparenchymal changes (right greater than left) similar to prior examination. ASSESSMENT AND PLAN: This is a very pleasant 78-year-old female with multiple Comorbidities presented with shortness of breath PROBLEMS: 1. Acute Hypoxic Respiratory Failure secondary to right lobe pneumonia possible aspiration pneumonia CURB-65: -discontinue ceftriaxone, azithromycin and START zosyn for additional anaerobic coverage -continue with Xopenex -c/w incentive spirometry, lung expansion therapy. Mucinex -urine Streptococcal pneumoniae Legionella pending and sputum culture -c/w Aspiration precaution. -Keep NPO until bedside swallow is completed. -c/w Maintained O2 greater than 90% -obtain CT chest 2. Elevated troponin secondary to demand ischemia -c/w to deny any chest pain -c/w telemetry -Echo completed, result above. -Dr. Astudillo Consulted. -c/w labetalol 200 mg twice a day, aspirin 81 mg daily, clopidogrel 75 mg daily, atorvastatin 40 mg 3. History of hypertension. - c/w Labetalol 200 mg and Lisinopril 2.5 mg -Will monitor 4. History of depression and anxiety. -c/w Lexapro 5mg mg by mouth daily. 5. History of hyperlipidemia. -c/w atorvastatin 40 mg 6. History of multiple CVAs. -c/w aspirin 81 mg 7. Abnormal TSH -possible secondary to being acutely sick. -will continue to monitor -no intervention needed 8. Low back pain -c/w physical therapy (PT) and occupational therapy (OT), 9. Diabetes. -Continue to hold home diabetes patient -Currently NPO, so stopped Levemir, will change to q6h coveragte - will monitor sugar 10. Diet. -aspiration risk -NPO diet, even no PO meds -Will need bedside speech swallow once stable and off vapotherm 11. HFrEF. -Echocardiogram 05/31/2019 showed 50% EF, -s/p Lasix 10mg overnight -appears hpovolemic clinically, so we'll need to watch fluid status while nothing by mouth -chest xray does show diffuse patchy infiltrates and some cephalization - will monitor DVT prophylaxis: Heparin BID DISPOSITION: Pending clinical improvement possibly more than 2 midnight VS, I&O, 24H, Fishbone Vital Signs/I&O Vital Signs Date Time Temp Pulse Resp B/P (MAP) Pulse Ox O2 Delivery O2 Flow Rate FiO2 06/01/19 10:00 92 Nasal Cannula 20.0 60 2/8/20 08:00 96.7 100 20 138/68 (91) I&O- Last 24 Hours up to 6 AM 06/01/19 06:00 Intake Total 0 ml Output Total 500 ml Balance -500 ml Laboratory Data 24H LABS Laboratory Tests 2 05/31/19 11:58: Bedside Glucose (Misc Panel) 306H 05/31/19 17:29: Bedside Glucose (Misc Panel) 208H 05/31/19 21:07: Bedside Glucose (Misc Panel) 177H 05/31/19 23:40: Blood Gas Bicarbonate Standard 23.4, Arterial Blood pH 7.390, Arterial Blood Partial Pressure CO2 39.8, Arterial Blood Partial Pressure O2 83.1, Arterial Blood Total CO2 24.8, Arterial Blood HCO3 23.6, Arterial Blood Base Excess -1.2, Arterial Blood Oxygen Saturation 96.7 06/01/19 05:23: Bedside Glucose (Misc Panel) 298H 06/01/19 05:33: Nucleated Red Blood Cells % (auto) 0.0, Anion Gap 6L, Glomerular Filtration Rate 52.5, Calcium Level 8.6L CBC/BMP Laboratory Tests 06/01/19 05:33 Microbiology Microbiology 05/30/19 Blood Culture - Preliminary, Resulted No Growth after 48 hours. All Specime... 05/30/19 Respiratory Virus Panel (PCR) ([facility]) - Final, Complete 05/30/19 Blood Culture - Preliminary, Resulted No Growth after 48 hours. All Specime... GME ATTESTATION GME ATTESTATION My faculty preceptor for this patient encounter was physically present during the encounter and was fully available. All aspects of the patient interview, examination, medical decision making process, and medical care plan development were reviewed and approved by the faculty preceptor. The faculty preceptor is aware and concurs with the plan as stated in the body of this note and will attest to such by his/her cosignature. ATTENDING NOTE Ms. Castro remains tenuous with worsening hypoxemia. I highly suspect that she has been aspirating and her pulmonary status has worsening now on 20L HFNC such that we have made her NPO at this time. She otherwise does not have much pulmonary edema to warrant diuretics as she is actually on the impregnator and drier side. We have escalated her antibiotics to zosyn and will continue to monitor her closely. She had an episode of bradycardia to 40s this afternoon that was asymptomatic and for now remains asymptomatic and hemodynamically stable. I had a discussion with her daughter who is the HCP about her tenuous status and we will continue antibiotics non invasive treatments. KIMMY WALTER DO Jun 01, 2019 11:31 CHERY CELESTE MD Jun 02, 2019 07:30
--- NOTE | 2019-06-01 13:17 | REP ---
Clinical: Increasing hypoxia. Technique: Axial noncontrast images from the thoracic inlet to the upper abdomen with coronal and sagittal re-formations. Comparison: None. Findings: Moderate area of consolidation extending from the right hilum to the right upper lobe along with scattered bilateral atelectasis and minuscule right pleural effusion. Underlying chronic emphysematous changes and interstitial disease noted. Mediastinal and right hilar adenopathy identified. Further evaluation demonstrates atherosclerotic changes to the thoracic aorta and coronary arteries without aortic aneurysm or cardiomegaly. No significant pericardial effusion. Musculoskeletal structures demonstrate degenerative changes and mild compression deformity at T8 of uncertain chronicity. Impression: 1. Moderate area of mass-like consolidation extending from the right hilum to the right upper lobe along with mediastinal and right hilar adenopathy. Differential diagnosis includes acute pneumonia and malignancy. 2. Scattered linear atelectasis and trace right effusion. 3. Underlying chronic interstitial and emphysematous changes. Atherosclerotic disease. 4. Mild compression deformity at T8 of uncertain chronicity. Electronically Signed by Gee Trujillo MD 06/01/2019 01:09 P
[2019-06-01] MEDS: HumaLOG INSULIN (NovoLOG) PER UNIT SC SCH ×2 (13:25→17:51)
[2019-06-01] MEDS: ATORVASTATIN 20 MG TAB PO SCH (20:06)
[2019-06-01] MEDS: LISINOPRIL *2.5 MG* TAB PO SCH (20:07)
[2019-06-01] MEDS: FLUTICASONE PROP 0.05% NASAL SPRAY 16 GM (FLONASE) SCH (20:55)
[2019-06-02] VITALS (23 sets, daily range): BP systolic 140–164; BP diastolic 68–81; O2SAT 91–99
[2019-06-02] MEDS: HumaLOG INSULIN (NovoLOG) PER UNIT SC SCH ×4 (00:07→17:49)
[2019-06-02] MEDS: PIPERACILLIN/TAZOBACTAM SOD 3.375 GM in D5W MINI-BAG PLUS 50 ML IV SCH ×4 (03:37→20:19)
--- NOTE | 2019-06-02 04:41 | IPNPDOC ---
Text Note Date of Service The patient was seen on 06/02/19. NOTE Per d/w the patient's RN earlier on in evening she had an episode of asymptoma tic bradycardia w a HR in the 40s while they were moving the patient. This morning she has been having episodes of asymptomatic tachycardia w a HR btw 90s- 110s. It appears as if her AM and PM doses of BB were held. We will order an EKG to r/o afib. VS,Fishbone, I+O VS, Fishbone, I+O Laboratory Tests 06/01/19 05:33 Vital Signs Date Time Temp Pulse Resp B/P (MAP) Pulse Ox O2 Delivery O2 Flow Rate FiO2 06/02/19 04:00 96.7 87 24 158/70 (99) 98 HVNI-Vapotherm 20.0 70 I&O- Last 24 Hours up to 6 AM 06/02/19 06:00 Intake Total 0 ml Output Total 450 ml Balance -450 ml YOVANY CEJA MD Jun 02, 2019 04:41
[2019-06-02] MEDS: HEPARIN SOD (PORCINE) 5000 UNITS/ML VIAL (J1644 PER 1000UNITS) SC SCH ×3 (05:20→21:36)
[2019-06-02] MEDS: SLF 3 ML SYR IV SCH ×3 (05:21→21:36)
[2019-06-02 06:28] LABS: HEMATOCRIT 39.4 % (36.0-47.0); HEMOGLOBIN 11.7 g/dl (12.0-15.5); MEAN CORPUSCULAR HEMOGLOBIN 26.8 pg (27.0-33.0); MEAN CORPUSCULAR HGB CONC 29.7 g/dl (32.0-36.5); MEAN CORPUSCULAR VOLUME 90.2 fl (80.0-96.0); PLATELET COUNT, AUTOMATED 427 10^3/uL (150-450); RED BLOOD COUNT 4.37 10^6/uL (4.00-5.40); WHITE BLOOD COUNT 15.2 10^3/uL (4.0-10.0)
[2019-06-02 06:48] LABS: C REACTIVE PROTEIN QUANTITATIV 4.2 MG/DL (0.00-0.30); CALCIUM LEVEL 9.2 MG/DL (8.8-10.2); CREATININE FOR GFR 1.11 MG/DL (0.55-1.30); GLOMERULAR FILTRATION RATE 50.9 (>39); POTASSIUM SERUM 3.7 MEQ/L (3.5-5.1)
[2019-06-02] MEDS: ESCITALOPRAM OXALATE 5MG TABLET (LEXAPRO) PO SCH (07:10)
[2019-06-02] MEDS: ASPIRIN 81 MG ENTERIC TAB PO SCH (07:10)
[2019-06-02] MEDS: LABETALOL 200 MG TAB PO SCH (07:10)
[2019-06-02] MEDS: CLOPIDOGREL 75 MG TAB PO SCH (07:11)
[2019-06-02] MEDS: CHOLESTYRAMINE 4 GM PWD PKT PO SCH ×2 (07:11→16:45)
[2019-06-02] MEDS: NS 0.45% 1,000 ML IV SCH ×2 (08:17→23:00)
--- NOTE | 2019-06-02 11:17 | ECGEPIP ---
[facility] Test Date: 2019-06-02 Pat Name: JOSHUA PATTERSON Department: Room: [place] [address] Gender: Female Rejector: JANICE : 1940 Requested By: YOVANY CEJA Order Number: [id number] Reading MD: Sarahi Lui Measurements Intervals [place] Rate: 84 P: 24 WA: 164 QRS: -28 QRSD: 61 T: 73 QT: 346 QTc: 409 Interpretive Statements SINUS RHYTHM WITH FREQUENT SUPRAVENTRICULAR PREMATURE COMPLEXES LOW QRS VOLTAGE IN PRECORDIAL LEADS POOR R WAVE PROGRESSION, CANNOT R/O IA CANNOT R/O INFERIOR MYOCARDIAL INFARCTION OF UNDETERMINED AGE MINIMAL CHANGE SINCE 05/30/2019 Electronically Signed on 06-02-2019 11:17:15 EST by Sarahi Lui
--- NOTE | 2019-06-02 13:14 | IPNPDOC ---
Text Note Date of Service The patient was seen on 06/02/19. NOTE SUBJECTIVE: -Ms. Castro has now had two episodes of brief asymptomatic sinus bradycardia to 30-40s with one having happened overnight -She otherwise reports no changes and says she has no pain anywhere Interim events: -I spoke with her daughter, Kandis yesterday evening and this morning in the room and discussed her tenuous state and she asked if her brother should fly in for [place] which I advised for him to do so. -At this time we will continue to treat reversible possible causes such as as PNA with non invasive means thus the decision to continue antibiotics even though CT reports possible PNA vs. mass-like appearing in RUL with hilar adenopathy. -She had a CT chest yesterday afternoon after she had been having progressively worsening hypoxemia for better delineation of her chest cavity anatomy at this time OBJECTIVE PHYSICAL EXAMINATION: VITAL SIGNS: Please see below. GENERAL: Pleasant, laying in bed, alert oriented speaking in minimal but complete sentences, in no acute distress HEENT: Atraumatic, normocephalic, pupils equal round reactive, dry mucous membranes with no JVD. CARDIOVASCULAR: S1 S2 tachycardic rate no additional heart sounds appreciated. RESPIRATORY: Diminished breath sounds on the right with dullness to percussion, she also has bibasilar crackles with some accessory muscle use by the end of our conversation. She is now on 70% FiO2 at 20L/min on HFNC ABDOMINAL: Bowel sounds in all 4 quadrants, nontender and soft EXTREMITIES: No lower extremity edema, cyanosis or clubbing. NEUROLOGICAL: no gross focal deficits appreciated PSYCHOLOGICAL: Appropriate LABORATORY DATA, MICROBIOLOGY: Please see below. Reviewed. na now 149, Na 3.7, Cr 1.11 IMAGING STUDIES: Chest x-ray 03/30/2020 Chest x-ray showed right lung upper lobe infiltrate, interval elevation of the right hemidiaphragm Echocardiogram: 05/31/2019 1. Study is of fair technical quality. The patient is in sinus rhythm. 2. Normal LV size with wall motion abnormality involving distal segments of left ventricle and apex and overall estimated EF around 50%. This is based on poor visualization. Grade 1 diastolic dysfunction. 3. No hemodynamically significant valvular disease. 4. Likely normal central venous pressure and mild pulmonary hypertension Chest Xray 06/01/2019 Impression: Diffuse bilateral pleuroparenchymal changes (right greater than left) similar to prior examination. CT chest 06/01/2019 1. Moderate area of mass-like consolidation extending from the right hilum tothe right upper lobe along with mediastinal and right hilar a denopathy.Differential diagnosis includes acute pneumonia and malignancy. 2. Scattered linear atelectasis and trace right effusion. 3. Underlying chronic interstitial and emphysematous changes. Atherosclerotic disease. 4. Mild compression deformity at T8 of uncertain chronicity. ASSESSMENT: Very pleasant 78-year-old W with multiple cormobidities who presented with shortness of breath and found to have JOSE ANTONIO consolidation and evidence of aspiration on PO, and being treated for PNA with course c/b worsening hypoxemia with escalating O2 requirements and type 2 NSTEMI and episodic asymptomatic bradycardia. PROBLEMS: 1. Acute Hypoxic Respiratory Failure secondary to right lobe pneumonia pos sible aspiration pneumonia -continue zosyn for now, pending MRSA PCR (called lab, not yet collected, will re-order) -continue with Xopenex -c/w incentive spirometry, lung expansion therapy, Mucinex, percussion therapy -urine Streptococcal pneumoniae Legionella pending and sputum culture -c/w Aspiration precaution. -Keep NPO until bedside swallow can be completed -c/w Maintained O2 greater than 90% 2. Type 2 NSTEMI with elevated trop, dynamic EKG in the setting of PNA -patient without any chest pain -c/w telemetry -Echo completed, result above. -Dr. Astudillo Consulted, to c/w labetalol 200 mg twice a day, aspirin 81 mg daily, clopidogrel 75 mg daily, atorvastatin 40 mg 3. Hypernatremia: in the setting of hypovolemia with no PO -start D51/2NS maintenance fluids with daily BMP, FSBG q6h and may add SSI if indicated 4. History of hypertension. - c/w Labetalol 200 mg and Lisinopril 2.5 mg, monitor 5. History of depression and anxiety. -c/w Lexapro 5mg mg by mouth daily. 6. History of hyperlipidemia. -c/w atorvastatin 40 mg 7. History of multiple CVAs. -c/w aspirin 81 mg 8. Abnormal TSH -possible secondary to being acutely sick. -to recheck as an outpatient -no intervention needed 9. Low back pain -c/w physical therapy (PT) and occupational therapy (OT), 10. Diabetes. -Continue to hold home diabetes patient -Currently NPO, so stopped Levemir, will change to q6h FSBG, on D51/2NS 11. Diet. -aspiration risk -NPO diet, even no PO meds -Will need bedside speech swallow once stable and off vapotherm -no maintenance fluids 11. HFrEF. -Echocardiogram 05/31/2019 showed 50% EF, -s/p Lasix 10mg overnight -appears hpovolemic clinically, so we'll need to watch fluid status while nothing by mouth -chest xray does show diffuse patchy infiltrates and some cephalization - will monitor DVT prophylaxis: Heparin BID DISPOSITION: PCU VS,Fishbone, I+O VS, Fishbone, I+O Laboratory Tests 06/02/19 05:35 Vital Signs Date Time Temp Pulse Resp B/P (MAP) Pulse Ox O2 Delivery O2 Flow Rate FiO2 06/02/19 11:00 HVNI-Vapotherm 20.0 70 06/02/19 07:21 97.2 106 24 164/81 (108) 95 I&O- Last 24 Hours up to 6 AM 06/02/19 06:00 Intake Total 100 ml Output Total 650 ml Balance -550 ml CHERY CELESTE MD Jun 02, 2019 13:13
[2019-06-02] MEDS: METOPROLOL 5 MG/5 ML VIAL IV SCH ×2 (15:50→21:35)
[2019-06-02] MEDS: LISINOPRIL *2.5 MG* TAB PO SCH (19:29)
[2019-06-02] MEDS: ATORVASTATIN 20 MG TAB PO SCH (19:29)
[2019-06-02] MEDS: FLUTICASONE PROP 0.05% NASAL SPRAY 16 GM (FLONASE) SCH (20:20)
[2019-06-03] VITALS (19 sets, daily range): BP systolic 120–188; BP diastolic 62–83; O2SAT 91–100
[2019-06-03] MEDS: HumaLOG INSULIN (NovoLOG) PER UNIT SC SCH ×5 (00:41→23:20)
[2019-06-03] MEDS: PIPERACILLIN/TAZOBACTAM SOD 3.375 GM in D5W MINI-BAG PLUS 50 ML IV SCH ×4 (03:12→21:16)
[2019-06-03] MEDS: METOPROLOL 5 MG/5 ML VIAL IV SCH (05:05)
[2019-06-03] MEDS: HEPARIN SOD (PORCINE) 5000 UNITS/ML VIAL (J1644 PER 1000UNITS) SC SCH ×3 (05:05→21:17)
[2019-06-03] MEDS: SLF 3 ML SYR IV SCH ×3 (05:05→21:19)
[2019-06-03 05:28] LABS: HEMATOCRIT 38.2 % (36.0-47.0); HEMOGLOBIN 11.3 g/dl (12.0-15.5); MEAN CORPUSCULAR HGB CONC 29.6 g/dl (32.0-36.5); MEAN CORPUSCULAR VOLUME 91.4 fl (80.0-96.0); PLATELET COUNT, AUTOMATED 422 10^3/uL (150-450); RED BLOOD COUNT 4.18 10^6/uL (4.00-5.40); WHITE BLOOD COUNT 15.7 10^3/uL (4.0-10.0)
[2019-06-03 05:51] LABS: C REACTIVE PROTEIN QUANTITATIV 2.17 MG/DL (0.00-0.30); CREATININE FOR GFR 1.07 MG/DL (0.55-1.30); GLOMERULAR FILTRATION RATE 53.1 (>39); POTASSIUM SERUM 3.6 MEQ/L (3.5-5.1)
[2019-06-03] MEDS: ASPIRIN 81 MG ENTERIC TAB PO SCH (09:00)
[2019-06-03] MEDS: ESCITALOPRAM OXALATE 5MG TABLET (LEXAPRO) PO SCH (09:00)
[2019-06-03] MEDS: CLOPIDOGREL 75 MG TAB PO SCH (09:00)
[2019-06-03 09:09] LABS: MAGNESIUM LEVEL 2.7 MG/DL (1.8-2.4)
--- NOTE | 2019-06-03 09:54 | ECGEPIP ---
[facility] Test Date: 2019-06-03 Pat Name: JOSHUA PATTERSON Department: Room: [place] [address] Gender: Female Clinical Pathologist: AIXA : 1940 Requested By: YOVANY CEJA Order Number: [id number] Reading MD: Ange King Measurements Intervals [place] Rate: 71 P: 99 LA: 177 QRS: -14 QRSD: 70 T: 129 QT: 390 QTc: 425 Interpretive Statements SINUS RHYTHM WITH OCCASIONAL SUPRAVENTRICULAR PREMATURE COMPLEXES ST DEVIATION AND MODERATE T-WAVE ABNORMALITY, CONSIDER ANTERIORLATERAL ISCHEMIA M MORE EXTENSIVE CHANGE LOW VOLT PRECORDIAL CANNOT R/O OLD IWMI Electronically Signed on 06-03-2019 9:54:00 EST by Ange King
[2019-06-03] MEDS: CHOLESTYRAMINE 4 GM PWD PKT PO SCH ×2 (10:00→16:35)
[2019-06-03] MEDS: D5W 1,000 ML IV SCH (10:15)
[2019-06-03] MEDS: LABETALOL HCL 100 MG/20 ML VIAL IV SCH ×3 (10:17→21:18)
--- NOTE | 2019-06-03 16:33 | IPNPDOC ---
Text Note Date of Service The patient was seen on 06/03/19. NOTE S: Pt examined at bedside with daughter present. Continues to feel short of breath. No events overnight. Continues to be NPO due to aspiration risk, on Vapotherm and unable to get swallow eval until she is weaned off. No chest pain, hemoptysis, dizziness, lightheadedness. They are still waiting on her remaining relatives to come into town to finalize their decision on her medical intermediate plans. PE: Vitals: see below General: NAD, A&Ox3, resting comfortably HEENT: NCAT, EOMI, anicteric sclera, MMM CV: RRR, no murmurs or clicks or rub. No edema RESP: On Vapotherm without accessory muscle use. Able to speak in full sentences. Bibasilar crackles with diminished lung sounds in the upper and midlung arreola. No wheezing. ABD: soft, NT, ND. Benign EXTREMITIES: 2+ radial pulses b/l, able to move all extremities NEURO: no focal deficits. Able to converse & follow commands appropriately A/P: 1. Acute hypoxemic respiratory failure She continues to require Vapotherm, goal is to wean her off. She remains at high risk of aspiration, pending swallow eval until she is off of Vapotherm. Continue IVF while NPO Possible pneumonia-procal & atypical w/u pending Although neg resp panel, is high risk pt with severe resp compromise, will cont inue Zosyn Day 3. Remains afebrile, CRP trending down Continue inhalers, incentive spirometry, supportive care There is a possible lung mass with adenopathy noted on imaging. Patient is awaiting arrival of her remaining relatives to finalize a decision if she does want to pursue further workup and treatment if this is indeed a true malignancy. At this point, they have verbalized hold off on any additional workup on this. They do confirm DNR/DNI. 2. Hypernatremia Patient asymptomatic. Likely has a heme-concentration component given her NPO status for the past few days. Started on IV fluids- D5/water 3. NSTEMI likely 2/2 demand ischemia no cardiac complaints, troponin did trend down as her resp status slightly improved pt refused transfer to cardiac center or any further intervention 4. Hyperthyroidism Pt asymptomatic. Will need o/p f/u Will hold off on starting medication currently given her acutely ill state HTN: controlled, continue Lisinopril & Labetalol for better HR control CKD 3: stable near her baseline Cr ~1.1 Dyslipidemia: Continue ASA, statin, Questran Insulin-dependent diabetes mellitus type 2: Continue ISS, hold home Glipizide Depression: Stable continue Lexapro Hx CVA: stable. Continue ASA HFrEF: compensated. 50% EF w/ grade 1 diastolic dysfxn as per 05/30 echo. DVT ppx: Heparin subcutaneous CODE: DNR/DNI confirmed with pt & her daughter DISPO: Pending clinical improvement. Patient waiting to finalize her decision if she wants to pursue any further medical care, pending arrival of her family. VS,Fishbone, I+O VS, Fishbone, I+O Laboratory Tests 06/03/19 05:04 Vital Signs Date Time Temp Pulse Resp B/P (MAP) Pulse Ox O2 Delivery O2 Flow Rate FiO2 06/03/19 14:14 94 HVNI-Vapotherm 20.0 60 06/03/19 11:57 97.8 74 159/72 (101) 06/03/19 08:11 18 I&O- Last 24 Hours up to 6 AM 06/03/19 06:00 Intake Total 700 ml Output Total 675 ml Balance 25 ml GME ATTESTATION GME ATTESTATION My faculty preceptor for this patient encounter was physically present during the encounter and was fully available. All aspects of the patient interview, examination, medical decision making process, and medical care plan development were reviewed and approved by the faculty preceptor. The faculty preceptor is aware and concurs with the plan as stated in the body of this note and will at test to such by his/her cosignature. ATTENDING NOTE Ms. Castro continues to be catiously tenuous and per my discussion with the family will continue an antibiotic course with levaquin for probable PNA vs. possible mass c/f malignancy, with the hope of treating reversible causes with none invasive means while we await for her son to arrive from [place]. Overnight she had an episode that was initially described as sustained VT but on further review is an SVT with aberrancy and thus prolonged QRS, with P waves present. Nonetheless she remains on levaquin, has no complaints and her hypoxemia this afternoon was slightly better with FiO2 down from 70% to 60%. JOSE NICOLAS DO Jun 03, 2019 14:56 CHERY CELESTE MD Jun 03, 2019 21:57
[2019-06-03] MEDS: LISINOPRIL *2.5 MG* TAB PO SCH (21:00)
[2019-06-03] MEDS: ATORVASTATIN 20 MG TAB PO SCH (21:00)
[2019-06-03] MEDS: FLUTICASONE PROP 0.05% NASAL SPRAY 16 GM (FLONASE) SCH (21:00)
[2019-06-04] VITALS (20 sets, daily range): BP systolic 130–182; BP diastolic 58–88; O2SAT 87–98
[2019-06-04 00:06] LABS: BODY FLUID CULTURE Not indicated. (.); LEGIONELLA ANTIGEN URINE Negative (Negative); ORGANISM ID Not indicated. (.); SPECIMEN SOURCE Urine (.); URINE STREP PNEUMONIAE ANTIGEN Negative (Negative)
[2019-06-04] MEDS: D5W 1,000 ML IV SCH ×2 (02:31→21:27)
[2019-06-04] MEDS: PIPERACILLIN/TAZOBACTAM SOD 3.375 GM in D5W MINI-BAG PLUS 50 ML IV SCH ×4 (02:35→21:25)
[2019-06-04] MEDS: LABETALOL HCL 100 MG/20 ML VIAL IV SCH ×4 (03:58→21:26)
[2019-06-04 05:49] LABS: HEMATOCRIT 37.3 % (36.0-47.0); HEMOGLOBIN 10.9 g/dl (12.0-15.5); MEAN CORPUSCULAR HEMOGLOBIN 26.8 pg (27.0-33.0); MEAN CORPUSCULAR HGB CONC 29.2 g/dl (32.0-36.5); MEAN CORPUSCULAR VOLUME 91.6 fl (80.0-96.0); PLATELET COUNT, AUTOMATED 359 10^3/uL (150-450); RED BLOOD COUNT 4.07 10^6/uL (4.00-5.40); WHITE BLOOD COUNT 14.5 10^3/uL (4.0-10.0)
[2019-06-04] MEDS: HumaLOG INSULIN (NovoLOG) PER UNIT SC SCH ×3 (06:12→18:28)
[2019-06-04] MEDS: SLF 3 ML SYR IV SCH ×3 (06:12→21:27)
[2019-06-04] MEDS: HEPARIN SOD (PORCINE) 5000 UNITS/ML VIAL (J1644 PER 1000UNITS) SC SCH ×3 (06:12→21:25)
[2019-06-04 06:13] LABS: CALCIUM LEVEL 8.7 MG/DL (8.8-10.2); CREATININE FOR GFR 1.02 MG/DL (0.55-1.30); GLOMERULAR FILTRATION RATE 56.1 (>39); POTASSIUM SERUM 3.2 MEQ/L (3.5-5.1)
[2019-06-04] MEDS: ASPIRIN 81 MG ENTERIC TAB PO SCH (07:37)
[2019-06-04] MEDS: ESCITALOPRAM OXALATE 5MG TABLET (LEXAPRO) PO SCH (07:37)
[2019-06-04] MEDS: CHOLESTYRAMINE 4 GM PWD PKT PO SCH ×2 (07:37→18:28)
[2019-06-04] MEDS: CLOPIDOGREL 75 MG TAB PO SCH (07:37)
[2019-06-04] MEDS: KCL 10MEQ/100ML SWI (KRUN) 10 MEQ in IV 1 EA IV SCH ×6 (09:15→18:28)
[2019-06-04] MEDS: LEVALBUTEROL 1.25 MG/0.5 ML CONCENTRATE NEB INH PRN (11:10)
[2019-06-04] MEDS ORDERED: VARIBAR NECTAR 40% w/v 240ML SUSP BTL As Ordered ONE (11:16)
[2019-06-04] MEDS ORDERED: VARIBAR PUDDING 40% w/v 230ML TUBE As Ordered ONE (11:16)
[2019-06-04] MEDS ORDERED: E-Z-PAQUE 96% w/w SUSP 176GM BTL As Ordered ONE (11:16)
--- NOTE | 2019-06-04 13:26 | IPNPDOC ---
Text Note Date of Service The patient was seen on 06/04/19. NOTE SUBJECTIVE: -No issues overnight, remains on levaquin, now on 3L NC -She otherwise reports no clinical changes and says she has no pain anywhere OBJECTIVE PHYSICAL EXAMINATION: VITAL SIGNS: Please see below. GENERAL: Pleasant, laying in bed, alert oriented speaking in minimal but complete sentences, in no acute distress HEENT: Atraumatic, normocephalic, pupils equal round reactive, dry mucous membranes with no JVD. CARDIOVASCULAR: S1 S2 tachycardic rate no additional heart sounds appreciated. RESPIRATORY:Continues to have diminished breath sounds over right chest and u pper back with dullness to percussion, with bibasilar crackles and otherwise without accessory muscle use ABDOMINAL: Bowel sounds in all 4 quadrants, nontender and soft EXTREMITIES: No lower extremity edema, cyanosis or clubbing. NEUROLOGICAL: no gross focal deficits appreciated PSYCHOLOGICAL: Appropriate LABORATORY DATA, MICROBIOLOGY: Please see below. Reviewed. na now 147, K 3.2 (repleted), Cr 1.02 IMAGING STUDIES: Chest x-ray 03/30/2020 Chest x-ray showed right lung upper lobe infiltrate, interval elevation of the right hemidiaphragm Echocardiogram: 05/31/2019 1. Study is of fair technical quality. The patient is in sinus rhythm. 2. Normal LV size with wall motion abnormality involving distal segments of left ventricle and apex and overall estimated EF around 50%. This is based on poor visualization. Grade 1 diastolic dysfunction. 3. No hemodynamically significant valvular disease. 4. Likely normal central venous pressure and mild pulmonary hypertension Chest Xray 06/01/2019 Impression: Diffuse bilateral pleuroparenchymal changes (right greater than left) similar to prior examination. CT chest 06/01/2019 1. Moderate area of mass-like consolidation extending from the right hilum tothe right upper lobe along with mediastinal and right hilar adenopathy.Differential diagnosis includes acute pneumonia and malignancy. 2. Scattered linear atelectasis and trace right effusion. 3. Underlying chronic interstitial and emphysematous changes. Atherosclerotic disease. 4. Mild compression deformity at T8 of uncertain chronicity. ASSESSMENT: Very pleasant 78-year-old W with multiple comorbidities who presented with shortness of breath and found to have JOSE ANTONIO consolidation and evidence of aspiration on PO, and being treated for PNA with course c/b worsening hypoxemia with escalating O2 requirements that now appear to be declining as well as type 2 NSTEMI and episodic asymptomatic bradycardia and episodes of sinus tachycardia with tachycardia induced LBBB PROBLEMS: 1. Acute Hypoxic Respiratory Failure secondary to right lobe pneumonia likely aspiration pneumonia, with concern for RUL mass on CT -continue zosyn for now, day 5 of antibiotics. -continue with Xopenex PRN -c/w incentive spirometry, lung expansion therapy, Mucinex, percussion therapy -urine Streptococcal pneumoniae Legionella negative, no sputum expectorated yet -c/w Aspiration precaution. -Keep NPO until bedside swallow can be completed, on D5W until recs are in -c/w Maintained O2 greater than 90% -ordering acapella 2. Type 2 NSTEMI with elevated trop, dynamic EKG in the setting of PNA -patient without any chest pain -c/w telemetry -Echo completed, result above. -Dr. Astudillo Consulted, to c/w labetalol 200 mg twice a day, aspirin 81 mg daily, clopidogrel 75 mg daily, atorvastatin 40 mg 3. Hypernatremia: in the setting of hypovolemia with no PO -continue D5W maintenance fluids with daily BMP, FSBG q6h w/ SSI 4. History of hypertension. - c/w Labetalol 10 IV Q6H, not being given her PO meds at this time 5. History of depression and anxiety. -not getting her PO Lexapro 5mg mg at this time 6. History of hyperlipidemia. -not being administered her atorvastatin 40 mg at this time until swallow eval 7. History of multiple CVAs. -not being administered her ASA at this time until swallow eval 8. Abnormal TSH -secondary to being acutely sick. -to recheck as an outpatient -no intervention needed 9. Low back pain -c/w physical therapy (PT) and occupational therapy (OT), 10. Diabetes. -Continue to hold home diabetes patient -Currently NPO, so stopped Levemir, will change to q6h FSBG, on D5W 11. Diet. -aspiration risk -NPO diet, even no PO meds -Will need bedside speech swallow once stable and off vapotherm -no maintenance fluids 11. HFrEF. -Echocardiogram 05/31/2019 showed 50% EF -appears hpovolemic clinically, on slow D5W -chest xray does show diffuse patchy infiltrates and some cephalization - will monitor 12. GOC: remains DNR/DNI working on non invasive interventions for reversible phenomena, awaiting arrival of family that lives far away. DVT prophylaxis: Heparin BID DISPOSITION: PCU VS,Arlet, I+O VS, Arlet, I+O Laboratory Tests 06/04/19 05:23 Vital Signs Date Time Temp Pulse Resp B/P (MAP) Pulse Ox O2 Delivery O2 Flow Rate FiO2 06/04/19 06:00 94 15.0 45 06/04/19 04:00 HVNI-Vapotherm 06/04/19 04:00 96.7 72 18 158/70 (99) I&O- Last 24 Hours up to 6 AM 06/04/19 05:59 Intake Total 700 ml Output Total 600 ml Balance 100 ml CHERY CELESTE MD Jun 04, 2019 08:09
--- NOTE | 2019-06-04 17:45 | REP ---
Modified barium swallow: History: Aspiration risk. Lateral video fluoroscopy was provided to the swallowing therapist who fed the patient various consistencies of barium labeled product. 2.4 minutes of fluoroscopy time was utilized. Findings: Laryngeal penetration was observed with swallowing of thin and nectar consistency barium labeled material. The laryngeal penetration was a little less prominent with the nectar. No tracheal aspiration was observed. There was some delay in intraoral transfer. After the pudding texture material, there was some pooling in the vallecula. Impression: Recurrent laryngeal penetration without aspiration. Some vallecular pooling and delay in intraoral transfer. Electronically Signed by Josiah Dunbar MD 06/04/2019 08:00 P
[2019-06-04 20:15] LABS: CLOSTRIDIUM DIFFICILE PCR NEGATIVE (NEGATIVE)
[2019-06-04] MEDS: ATORVASTATIN 20 MG TAB PO SCH (21:26)
[2019-06-04] MEDS: FLUTICASONE PROP 0.05% NASAL SPRAY 16 GM (FLONASE) SCH (21:26)
[2019-06-04] MEDS: LISINOPRIL *2.5 MG* TAB PO SCH (21:26)
[2019-06-04] MEDS ORDERED: DEXTROSE 50% 50 ML SYRINGE IV PRN (23:15)
[2019-06-04] MEDS ORDERED: GLUCAGON FOR INJ 1 MG VIAL (J1610) SC PRN (23:15)
[2019-06-04] MEDS ORDERED: GLUCOSE 4 GM CHEW TABLET PO PRN (23:15)
[2019-06-05] VITALS (21 sets, daily range): BP systolic 120–192; BP diastolic 60–82; O2SAT 84–98
[2019-06-05] MEDS: HumaLOG INSULIN (NovoLOG) PER UNIT SC SCH ×5 (00:08→22:07)
[2019-06-05] MEDS: D5W 1,000 ML IV SCH (03:11)
[2019-06-05] MEDS: PIPERACILLIN/TAZOBACTAM SOD 3.375 GM in D5W MINI-BAG PLUS 50 ML IV SCH ×4 (03:11→22:07)
[2019-06-05] MEDS: LABETALOL HCL 100 MG/20 ML VIAL IV SCH (03:35)
[2019-06-05 05:27] LABS: HEMATOCRIT 37.1 % (36.0-47.0); HEMOGLOBIN 10.7 g/dl (12.0-15.5); MEAN CORPUSCULAR HEMOGLOBIN 26.5 pg (27.0-33.0); MEAN CORPUSCULAR HGB CONC 28.8 g/dl (32.0-36.5); MEAN CORPUSCULAR VOLUME 91.8 fl (80.0-96.0); PLATELET COUNT, AUTOMATED 332 10^3/uL (150-450); RED BLOOD COUNT 4.04 10^6/uL (4.00-5.40); WHITE BLOOD COUNT 14.2 10^3/uL (4.0-10.0)
[2019-06-05 05:46] LABS: CALCIUM LEVEL 8.1 MG/DL (8.8-10.2); CREATININE FOR GFR 1.07 MG/DL (0.55-1.30); GLOMERULAR FILTRATION RATE 53.1 (>39); POTASSIUM SERUM 3.3 MEQ/L (3.5-5.1)
[2019-06-05] MEDS: HEPARIN SOD (PORCINE) 5000 UNITS/ML VIAL (J1644 PER 1000UNITS) SC SCH ×3 (05:50→22:23)
[2019-06-05] MEDS: SLF 3 ML SYR IV SCH ×3 (05:50→22:23)
--- NOTE | 2019-06-05 08:13 | CR ---
DATE OF CONSULTATION: 05/31/2019 CARDIOLOGY CONSULTATION: REFERRING PROVIDER: Dr. aMriam Pepe REASON FOR CONSULT: Abnormal EKG. HISTORY OF PRESENT ILLNESS: 78-year-old woman with a history of multiple CVAs, hypertension, hyperlipidemia, diabetes mellitus, peripheral artery disease, and a history of patent foramen ovale (PFO) was admitted on 05/30/2019 with sudden onset of shortness of breath and was diagnosed initially with pneumonia. Her serum troponin, however, was slightly elevated on admission at 0.48. She was also started on oral antibiotics for her pneumonia, and her second troponin was 0.76 and she was found to have EKG findings described as acute myocardial infarction (AMI). Cardiology consult was called. Case was discussed on 05/30/2019 with the hospitalist covering the patient and also on 05/31/2019 with the hospitalist. Patient was seen on 05/31/2019 and at that time, her as well as her son were at bedside. Patient was alert and awake, in no acute distress at rest. She denies any chest pain and has not been having any chest pain. Her shortness of breath, according to nursing staff, has been stable. Patient is unable to give all information, and her son responded to the questions. It seemed that she is being also evaluated for aspiration pneumonia. She, however, denies any chest pain and even prior to coming to the hospital, she was not having any chest pain. There is no report of palpitations even though she was tachycardiac on admission. VITAL SIGNS: On Monday afternoon when I saw her, revealed a blood pressure of 151/71 with a pulse of 80, respirations 24, and her maximum temperature was 97.9 degrees Fahrenheit with an oxygen saturation of 94% on FiO2 of 40%. PAST SURGICAL HISTORY: Unremarkable. MEDICATIONS: - Plavix 75 mg by mouth daily - atorvastatin 40 mg by mouth daily - heparin subcu - aspirin 81 mg by mouth daily - Lexapro 5 mg by mouth daily - Labetalol 200 mg by mouth daily - magnesium oxide - Imodium - Doculax suppository - D50 as well as glucose tablets and glucagon for hypoglycemic events - cholestyramine 4 mg twice a day by mouth - Xopenex as directed SOCIAL HISTORY: Patient is a former heavy smoker, and she has been living at the [facility]. There is no report of ethyl alcohol (EtOH) abuse. She has a health care proxy, her son, who was at bedside. She has a DO NOT RESUSCITATE and DO NOT INTUBATE status. ALLERGIES: No known drug allergies. PHYSICAL EXAMINATION: Patient is alert and awake, in no acute distress at rest. Examination of the head: Atraumatic. Neck is supple, and no jugular venous distention (JVD) appreciated. The lungs revealed crackles but no wheezing at the bases laterally. The heart examination revealed regular heart sounds without gallops. The point of maximal impulse (PMI) is slightly displaced. There is no rub. I could not appreciate any murmurs. Abdomen is soft and nontender. Extremities: Revealed no significant pedal edema. Neurological examination was not appreciated. LABS: BMP on 05/30/2019 revealed a sodium of 142, potassium 5.1, chloride 111, CO2 of 19, BUN 39, creatinine 1.06, GFR 53.7, and fasting glucose 360. Liver enzymes revealed a total bilirubin of 0.4, direct bilirubin 0.1, AST 21, ALT 19, alkaline phosphatase 151, total protein 6.9, albumin 2.8. Serum TSH was 0.29 with a free T4 of 1.64. Serum troponin was 0.48, 0.76, 0.89, 1.01, and 0.85. BMP on 05/31/2019 revealed a sodium of 142, potassium 4.2, chloride 110, CO2 of 22, BUN 38, creatinine 1.15, GFR 48.8, fasting glucose 372, calcium 8.9. Serum magnesium is 2.2. TSH is 0.261 with a free T4 of 1.47. Serum proBNP on admission is 4583. CBC on 05/30/2019 revealed WBC of 15.7, hemoglobin 12.1, hematocrit 38.8, and platelet 374,000. On 05/31/2019, CBC revealed WBC of 13.2, hemoglobin 11.4, hematocrit 37.6, and platelet 359,000. PT on admission was 16.0 with an INR of 1.31. VBG on admission revealed a pH of 7.31, pCO2 of 38.5, pO2 of 93.3, and bicarbonate 19.1. Blood culture pending. Respiratory panel was negative. Chest x-ray on admission revealed a large right upper lobe infiltrate. Electrocardiograms were reviewed, and the one on 05/30/2019 at 1723 hours revealed normal sinus rhythm with poor R wave progression and ST elevation noted in those leads with Q waves, consistent probably with prior infarct but not acute. There was also Q wave noted on V1 to V4. Echocardiogram done on 05/30/2019 was reviewed. As mentioned above, case was discussed with hospitalist admitting physician and the patient has minimal abnormal troponin but not consistent with acute ST elevation myocardial infarction, particularly in view of the findings noted on the echocardiogram. I am leaning towards a case of myocarditis associated with her pneumonia causing type 2 myocardial infarction versus a mild form of takotsubo cardiomyopathy. I, however, recommended to continue with her beta-yusef, her angiotensin-converting enzyme (SUAD) inhibitor, as well as her statin, her aspirin and with added Plavix. She is being treated for her pneumonia. At this present time, she appears to be stable from a cardiac point of view and concentrate in treating her pneumonia; she is now being evaluated for aspiration pneumonia. Once again, her EKG findings are not consistent with an acute myocardial infarction in the presence of that mildly elevated serum troponin and presence of significant wall motion abnormalities noted on echocardiogram. In that case, she not be in cardiogenic shock. Once again, it is most likely related to some form of myocarditis associated with her pneumonia versus apical ballooning syndrome. It was a pleasure to participate the care of . Cece Castro for her underlying cardiac condition. I will monitor her along with you as needed. Please do not hesitate to call if any concerns. LENORA
[2019-06-05] MEDS: CHOLESTYRAMINE 4 GM PWD PKT PO SCH ×2 (09:07→17:45)
[2019-06-05] MEDS: POTASSIUM CHLORIDE 10% LIQ 20 MEQ/15 ML UDC PO SCH ×2 (09:07→22:05)
[2019-06-05] MEDS: CLOPIDOGREL 75 MG TAB PO SCH (09:08)
[2019-06-05] MEDS: ESCITALOPRAM OXALATE 5MG TABLET (LEXAPRO) PO SCH (09:08)
[2019-06-05] MEDS: ASPIRIN 81 MG ENTERIC TAB PO SCH (09:08)
[2019-06-05] MEDS: LABETALOL 200 MG TAB PO SCH ×2 (13:52→22:05)
--- NOTE | 2019-06-05 17:06 | IPNPDOC ---
Text Note Date of Service The patient was seen on 06/05/19. NOTE SUBJECTIVE: -No issues overnight, remains on zosyn day 6 now, stable on 3L NC -She otherwise reports that she slept well and is doing the same without acute complaints and is tolerating the pureed diet OBJECTIVE PHYSICAL EXAMINATION: VITAL SIGNS: Please see below. GENERAL: Pleasant, sitting up in bed, alert oriented speaking in complete sentences, in no acute distress HEENT: Atraumatic, normocephalic, pupils equal round reactive, dry mucous membranes with no JVD. CARDIOVASCULAR: RRR, no mrg RESPIRATORY: Diminished R sounds with some crackles as well as with L basilar crackles, otherwise breathing comfortably ABDOMINAL: Bowel sounds in all 4 quadrants, nontender and soft EXTREMITIES: No lower extremity edema, cyanosis or clubbing. NEUROLOGICAL: no gross focal deficits appreciated PSYCHOLOGICAL: Appropriate LABORATORY DATA, MICROBIOLOGY: Please see below. Reviewed. na now 144, K 3.3 (repleted), Cr 1.07 IMAGING STUDIES: Chest x-ray 03/30/2020 Chest x-ray showed right lung upper lobe infiltrate, interval elevation of the right hemidiaphragm Echocardiogram: 05/31/2019 1. Study is of fair technical quality. The patient is in sinus rhythm. 2. Normal LV size with wall motion abnormality involving distal segments of left ventricle and apex and overall estimated EF around 50%. This is based on poor visualization. Grade 1 diastolic dysfunction. 3. No hemodynamically significant valvular disease. 4. Likely normal central venous pressure and mild pulmonary hypertension Chest Xray 06/01/2019 Impression: Diffuse bilateral pleuroparenchymal changes (right greater than left) similar to prior examination. CT chest 06/01/2019 1. Moderate area of mass-like consolidation extending from the right hilum tothe right upper lobe along with mediastinal and right hilar adenopathy.Differential diagnosis includes acute pneumonia and malignancy. 2. Scattered linear atelectasis and trace right effusion. 3. Underlying chronic interstitial and emphysematous changes. Atherosclerotic disease. 4. Mild compression deformity at T8 of uncertain chronicity. ASSESSMENT: Very pleasant 78-year-old W with multiple comorbidities who presented with shortness of breath and found to have JOSE ANTONIO consolidation and evidence of aspiration on PO, and being treated for PNA with course c/b worsening hypoxemia requiring vapotherm now much improved and on 3L NC, as well as type 2 NSTEMI and episodic asymptomatic bradycardia and episodes of sinus tachycardia w/ inducible LBBB now resolved, and noted to have aspiration with PO now cleared for pureed diet, doing clinically better this morning. PROBLEMS: 1. Acute Hypoxic Respiratory Failure secondary to right lobe pneumonia likely aspiration pneumonia, with concern for RUL mass on CT -continue zosyn for today, day 6 of antibiotics. To have the last dose as levaquin 750mg tomorrow AM. -continue with Xopenex PRN -c/w incentive spirometry, lung expansion therapy, Mucinex, percussion therapy -urine Streptococcal pneumoniae Legionella negative, no sputum expectorated yet -c/w Aspiration precaution. -c/w pureed diet -c/w O2 greater than 88% -continue acapella 2. Type 2 NSTEMI with elevated trop, dynamic EKG in the setting of PNA -patient without any chest pain -c/w telemetry -Echo completed, result above. -Dr. Astudillo Consulted, to c/w labetalol 200 mg twice a day, aspirin 81 mg daily, clopidogrel 75 mg daily, atorvastatin 40 mg. 3. Hypernatremia: in the setting of hypovolemia with no PO. Resolved, monitor daily BMP. 4. History of hypertension. - Dc Labetalol 10 IV Q6H, now that she can receive her PO meds crushed. c/w home labetalol 200 mg twice a day 5. History of depression and anxiety. -continue her PO Lexapro 5mg 6. History of hyperlipidemia. -c/w atorvastatin 40 mg 7. History of multiple CVAs. - continue ASA and also now on plavix after type 2 NSTEMI with dynamic EKG 8. Abnormal TSH -secondary to being acutely sick. -to recheck as an outpatient -no intervention needed 9. Low back pain: -c/w physical therapy (PT) and occupational therapy (OT), 10. Diabetes. -Continue to hold home diabetes meds -Currently placed on pureed diet, will restart Levemir, will change to FSBG to AC/HS and start SSI 11. Diet. -aspiration risk -s/p speech eval --> on pureed diet -DC maintenance fluids for now 11. HFrEF. -Echocardiogram 05/31/2019 showed 50% EF -DC D5W, now taking PO -chest xray does show diffuse patchy infiltrates and some cephalization - will monitor 12. GOC: remains DNR/DNI working on non-invasive interventions for reversible phenomena. 13. Deconditioning: Today we spoke at length about her investment into getting better and how we need her to engage PT and OT when they attempt to work with her. She will try today. She thinks she may do better now that she has some nutrition with the pureed diet. DVT prophylaxis: Heparin BID DISPOSITION: PCU with ongoing O2 downtitration. VS,Fishbone, I+O VS, Fishbone, I+O Laboratory Tests 06/05/19 05:00 Vital Signs Date Time Temp Pulse Resp B/P (MAP) Pulse Ox O2 Delivery O2 Flow Rate FiO2 06/05/19 08:00 97.3 70 16 162/72 (102) 96 Nasal Cannula 3.0 06/04/19 12:00 40 I&O- Last 24 Hours up to 6 AM 06/05/19 06:00 Intake Total 1575 ml Output Total 800 ml Balance 775 ml CHERY CELESTE MD Jun 05, 2019 08:51
[2019-06-05] MEDS ORDERED: LevoFLOXacin 750 MG TABLET PO SCH (18:00)
[2019-06-05] MEDS: LISINOPRIL *2.5 MG* TAB PO SCH (22:05)
[2019-06-05] MEDS: ATORVASTATIN 20 MG TAB PO SCH (22:05)
[2019-06-05] MEDS: FLUTICASONE PROP 0.05% NASAL SPRAY 16 GM (FLONASE) SCH (22:06)
[2019-06-06] VITALS (23 sets, daily range): BP systolic 127–180; BP diastolic 58–88; O2SAT 88–96
[2019-06-06] MEDS: SLF 3 ML SYR IV SCH ×3 (05:23→21:32)
[2019-06-06] MEDS: HEPARIN SOD (PORCINE) 5000 UNITS/ML VIAL (J1644 PER 1000UNITS) SC SCH ×3 (05:23→21:30)
[2019-06-06] MEDS: HumaLOG INSULIN (NovoLOG) PER UNIT SC SCH ×4 (07:40→21:32)
[2019-06-06] MEDS: ESCITALOPRAM OXALATE 5MG TABLET (LEXAPRO) PO SCH (07:59)
[2019-06-06] MEDS: LABETALOL 200 MG TAB PO SCH ×2 (08:00→21:31)
[2019-06-06] MEDS: ASPIRIN 81 MG ENTERIC TAB PO SCH (08:01)
[2019-06-06] MEDS: CLOPIDOGREL 75 MG TAB PO SCH (08:01)
[2019-06-06] MEDS ORDERED: LevoFLOXacin IV 750 MG in IV 1 EA IV SCH (09:00)
[2019-06-06] MEDS: CHOLESTYRAMINE 4 GM PWD PKT PO SCH ×2 (10:16→17:05)
[2019-06-06 11:16] LABS: HEMATOCRIT 37.9 % (36.0-47.0); HEMOGLOBIN 10.9 g/dl (12.0-15.5); MEAN CORPUSCULAR HEMOGLOBIN 26.5 pg (27.0-33.0); MEAN CORPUSCULAR HGB CONC 28.8 g/dl (32.0-36.5); MEAN CORPUSCULAR VOLUME 92.2 fl (80.0-96.0); PLATELET COUNT, AUTOMATED 296 10^3/uL (150-450); RED BLOOD COUNT 4.11 10^6/uL (4.00-5.40)
--- NOTE | 2019-06-06 11:19 | IPN ---
DATE: 06/06/2019 Cece is seen while rounding for the hospitalist. She feels better. She is less short of breath. She still has quite a bit of coughing and wheezing. She is being treated for acute hypoxic respiratory failure from right sided pneumonia, probably aspiration. She also has possible right upper lobe mass on her CT scan. She is on day 6 of Zosyn and last day of IV Levaquin today. Had a non ST segment elevation myocardial infarction with elevated troponin in the setting of pneumonia and hypernatremia, which has resolved. Her blood pressure has been well controlled and her blood sugars have been adequately controlled as well. PHYSICAL EXAMINATION: 174/84, previous blood pressures were better in the 140s over 50. HEENT: Unremarkable. LUNGS: Decreased breath sounds, expiratory wheezes. HEART: Regular rhythm. EXTREMITIES: No peripheral edema. NEUROLOGIC: Nonfocal. No laboratories ordered for today. IMPRESSION: 1. Aspiration pneumonia. Continue current antibiotic regimen, it is the last day of Levaquin. Continue Zosyn. 2. Mass like consolidation right hilum to right upper lobe. Pneumonia versus malignancy. Followup imaging will be necessary. 3. Swallowing difficulty with recurrent laryngeal penetration without aspiration on a swallowing study. She received speech therapy. 4. Non ST segment elevation myocardial infarction. 5. Hypokalemia. I have ordered some laboratories for today. 6. Hypernatremia. I have ordered laboratories for today. 7. Diabetes. Blood sugars have been up a bit, possibly from the quinolone. She is getting about 30 units of insulin coverage. We will start some basal insulin and adjust this depending on coverage needs.
[2019-06-06 11:48] LABS: ALBUMIN 2.4 GM/DL (3.2-5.2); BILIRUBIN,TOTAL 0.3 MG/DL (0.2-1.0); CALCIUM LEVEL 8.6 MG/DL (8.8-10.2); CREATININE FOR GFR 1.24 MG/DL (0.55-1.30); GLOMERULAR FILTRATION RATE 44.8 (>39); TOTAL PROTEIN 5.7 GM/DL (6.4-8.2)
[2019-06-06] MEDS ORDERED: HumaLOG INSULIN (NovoLOG) PER UNIT SC ONE (13:00)
[2019-06-06] MEDS ORDERED: LEVEMIR (INSULIN DETEMIR) 1 UNITS/0.01ML SC SCH (21:00)
[2019-06-06] MEDS: FLUTICASONE PROP 0.05% NASAL SPRAY 16 GM (FLONASE) SCH (21:30)
[2019-06-06] MEDS: ATORVASTATIN 20 MG TAB PO SCH (21:30)
[2019-06-06] MEDS: LISINOPRIL *2.5 MG* TAB PO SCH (21:30)
[2019-06-07] VITALS (12 sets, daily range): BP systolic 129–146; BP diastolic 60–88; O2SAT 89–97
[2019-06-07 05:14] LABS: HEMATOCRIT 32.7 % (36.0-47.0); HEMOGLOBIN 9.9 g/dl (12.0-15.5); MEAN CORPUSCULAR HEMOGLOBIN 27.5 pg (27.0-33.0); MEAN CORPUSCULAR HGB CONC 30.3 g/dl (32.0-36.5); MEAN CORPUSCULAR VOLUME 90.8 fl (80.0-96.0); PLATELET COUNT, AUTOMATED 283 10^3/uL (150-450)
[2019-06-07] MEDS: SLF 3 ML SYR IV SCH ×3 (05:31→21:44)
[2019-06-07] MEDS: HEPARIN SOD (PORCINE) 5000 UNITS/ML VIAL (J1644 PER 1000UNITS) SC SCH ×3 (05:31→21:43)
[2019-06-07 05:35] LABS: CALCIUM LEVEL 8.6 MG/DL (8.8-10.2); CREATININE FOR GFR 0.98 MG/DL (0.55-1.30); GLOMERULAR FILTRATION RATE 58.7 (>39); POTASSIUM SERUM 4.1 MEQ/L (3.5-5.1)
[2019-06-07] MEDS: HumaLOG INSULIN (NovoLOG) PER UNIT SC SCH ×4 (07:30→21:43)
[2019-06-07] MEDS: ESCITALOPRAM OXALATE 5MG TABLET (LEXAPRO) PO SCH (09:52)
[2019-06-07] MEDS: CLOPIDOGREL 75 MG TAB PO SCH (09:52)
[2019-06-07] MEDS: ASPIRIN 81 MG ENTERIC TAB PO SCH (09:52)
[2019-06-07] MEDS: LABETALOL 200 MG TAB PO SCH ×2 (09:53→21:42)
[2019-06-07] MEDS: CHOLESTYRAMINE 4 GM PWD PKT PO SCH ×2 (09:53→16:54)
--- NOTE | 2019-06-07 12:50 | IPN ---
DATE: 06/07/2019 Cece is a little better than yesterday. She says she has gradually become less short of breath, coughing, less, denies any right sided pain. She has pneumonia, probably aspiration, affecting her right lung, also right upper lobe mass on CT scan. Day 7 of Zosyn today. Denies any exertional chest pain or palpitations. Non-ST segment elevation [place] earlier in her hospitalization. She has had no cardiac symptoms since then. PHYSICAL EXAMINATION: Afebrile. Vital signs stable. 144/67, pulse of 100. General appearance: Alert and conversant in no distress. Lungs decreased breath sounds on the right side, few rhonchi. Better air movement than yesterday. Heart regular rate and rhythm. Abdomen soft, nontender. No peripheral edema. LABORATORIES: White count is 20,000, hemoglobin 9.9, platelets 283. Sodium 149, potassium 4.1, BUN 26, creatinine 0.9, glucose 235. Blood sugars have been quite high in the 400 range. IMPRESSION: 1. Aspiration pneumonia. Continue her Zosyn. Her white count is rising. If it does not improve by tomorrow would consider repeating CT scan of the chest. 2. Right upper lobe mass. Followup imaging will be necessary. 3. Swallowing difficulties. She had a laryngeal penetration but without rosenda aspiration on swallowing study. 4. Non-ST segment elevation myocardial infarction. No recurrence of cardiac symptoms. 5. Hypokalemia. Potassium is improved. 6. Hypernatremia. I have asked staff to push water today. She might need IV fluids restarted tomorrow. 7. Hypertension. Blood pressure is under good control. 8. Diabetes. Will increase her detemir insulin dose today. Continue sliding scale with coverage. Titrate up detemir dose based on coverage requirements. She probably will not be stable for transfer back to [place] until Monday.
[2019-06-07] MEDS ORDERED: LEVEMIR (INSULIN DETEMIR) 1 UNITS/0.01ML SC SCH (21:00)
[2019-06-07] MEDS: LISINOPRIL *2.5 MG* TAB PO SCH (21:42)
[2019-06-07] MEDS: ATORVASTATIN 20 MG TAB PO SCH (21:42)
[2019-06-07] MEDS: FLUTICASONE PROP 0.05% NASAL SPRAY 16 GM (FLONASE) SCH (22:04)
[2019-06-08 03:09] VITALS: BP 143/80
[2019-06-08] MEDS ORDERED: LABETALOL 200 MG TAB PO ONE (03:30)
[2019-06-08] MEDS: SLF 3 ML SYR IV SCH ×3 (05:37→21:50)
[2019-06-08] MEDS: HEPARIN SOD (PORCINE) 5000 UNITS/ML VIAL (J1644 PER 1000UNITS) SC SCH ×2 (05:37→14:29)
[2019-06-08 06:52] LABS: HEMATOCRIT 30.1 % (36.0-47.0); HEMOGLOBIN 8.9 g/dl (12.0-15.5); MEAN CORPUSCULAR HEMOGLOBIN 27.5 pg (27.0-33.0); MEAN CORPUSCULAR HGB CONC 29.6 g/dl (32.0-36.5); MEAN CORPUSCULAR VOLUME 92.9 fl (80.0-96.0); PLATELET COUNT, AUTOMATED 239 10^3/uL (150-450); RED BLOOD COUNT 3.24 10^6/uL (4.00-5.40); WHITE BLOOD COUNT 28.1 10^3/uL (4.0-10.0)
[2019-06-08 07:15] VITALS: O2SAT 96
[2019-06-08 07:16] LABS: CALCIUM LEVEL 9.4 MG/DL (8.8-10.2); CREATININE FOR GFR 1.19 MG/DL (0.55-1.30); GLOMERULAR FILTRATION RATE 46.9 (>39); POTASSIUM SERUM 4.7 MEQ/L (3.5-5.1)
[2019-06-08] MEDS: ESCITALOPRAM OXALATE 5MG TABLET (LEXAPRO) PO SCH (09:42)
[2019-06-08] MEDS: HumaLOG INSULIN (NovoLOG) PER UNIT SC SCH ×3 (09:42→17:30)
[2019-06-08] MEDS: CHOLESTYRAMINE 4 GM PWD PKT PO SCH ×2 (09:42→18:00)
[2019-06-08] MEDS: ASPIRIN 81 MG ENTERIC TAB PO SCH (09:42)
[2019-06-08] MEDS: CLOPIDOGREL 75 MG TAB PO SCH (09:43)
[2019-06-08 09:44] VITALS: BP 143/80
[2019-06-08] MEDS: LABETALOL 200 MG TAB PO SCH (09:44)
--- NOTE | 2019-06-08 09:47 | REP ---
Clinical: Leukocytosis. Technique: Axial noncontrast images from the thoracic inlet to the upper abdomen with coronal and sagittal re-formations. Comparison: 06/01/2019. Findings: Presumed right hilar mass/consolidation extending into the right upper lobe with multiple right upper lobe satellite nodules and a second area of prominent mass/consolidation along the anterior right apex measuring 2.6 cm are again identified. There appears to be slight decrease in the associated right upper lobe consolidation with minimally improved aeration to the right upper lobe. The right hilar mass also causes obstruction to the right upper lobe bronchus. Associated elements of atelectasis involving the right upper lobe, right lower lobe, left lower lobe and lingula as well as significant mediastinal and hilar adenopathy are unchanged from prior examination. Underlying chronic COPD and scattered scarring again noted. No significant effusion. Stable atherosclerotic changes to the thoracic aorta and coronary arteries noted without aortic aneurysm. No pericardial effusion. Impression: Findings as described above. Minimally improved aeration to the right upper lobe. Continued significant right hilar mass / consolidation with satellite lesions in the right upper lobe, mediastinal/hilar adenopathy, and scattered bilateral atelectasis primarily to the right lower lobe. Electronically Signed by Gee Trujillo MD 06/08/2019 09:39 A
[2019-06-08 14:00] VITALS: BP 100/54
--- NOTE | 2019-06-08 15:07 | IPNPDOC ---
Text Note Date of Service The patient was seen on 06/08/19. NOTE SUBJECTIVE: -No issues overnight -Without acute complaints this morning OBJECTIVE PHYSICAL EXAMINATION: VITAL SIGNS: Please see below. Tachycardic GENERAL: Pleasant, sitting up in bed, alert oriented speaking in complete sentences, in no acute distress HEENT: Atraumatic, normocephalic, pupils equal round reactive, dry mucous membranes with no JVD. CARDIOVASCULAR: RRR, no mrg RESPIRATORY: Diminished R sounds with some crackles as well as with L basilar crackles, otherwise breathing comfortably ABDOMINAL: Bowel sounds in all 4 quadrants, nontender and soft EXTREMITIES: No lower extremity edema, cyanosis or clubbing. NEUROLOGICAL: no gross focal deficits appreciated PSYCHOLOGICAL: Appropriate LABORATORY DATA, MICROBIOLOGY: Please see below. Reviewed. na now 144, K 3.3 (repleted), Cr 1.07 IMAGING STUDIES: Chest x-ray 03/30/2020 Chest x-ray showed right lung upper lobe infiltrate, interval elevation of the right hemidiaphragm Echocardiogram: 05/31/2019 1. Study is of fair technical quality. The patient is in sinus rhythm. 2. Normal LV size with wall motion abnormality involving distal segments of left ventricle and apex and overall estimated EF around 50%. This is based on poor visualization. Grade 1 diastolic dysfunction. 3. No hemodynamically significant valvular disease. 4. Likely normal central venous pressure and mild pulmonary hypertension Chest Xray 06/01/2019 Impression: Diffuse bilateral pleuroparenchymal changes (right greater than left) similar to prior examination. CT chest 06/01/2019 1. Moderate area of mass-like consolidation extending from the right hilum tothe right upper lobe along with mediastinal and right hilar adenopa thy.Differential diagnosis includes acute pneumonia and malignancy. 2. Scattered linear atelectasis and trace right effusion. 3. Underlying chronic interstitial and emphysematous changes. Atherosclerotic disease. 4. Mild compression deformity at T8 of uncertain chronicity. CT chest: 06/08/2019 Presumed right hilar mass/consolidation extending into the right upper lobe with multiple right upper lobe satellite nodules and a second area of prominent mass/consolidation along the anterior right apex measuring 2.6 cm are again identified. There appears to be slight decrease in the associated right upper lobe consolidation with minimally improved aeration to the right upper lobe. The right hilar mass also causes obstruction to the right upper lobe bronchus. Associated elements of atelectasis involving the right upper lobe, right lower lobe, left lower lobe and lingula as well as significant mediastinal and hilar adenopathy are unchanged from prior examination. Underlying chronic COPD and scattered scarring again noted. No significant effusion. ASSESSMENT: 78-year-old W with multiple comorbidities who presented with shortness of breath and found to have JOSE ANTONIO consolidation and evidence of aspiration on PO, and treated for PNA c/b worsening hypoxemia requiring vapotherm now much improved and on minimal O2, as well as type 2 NSTEMI and episodic asymptomatic bradycardia and episodes of sinus tachycardia w/ inducible LBBB now resolved, whose course is now c/b worsening leukocytosis and tachycardia c/f infection with re-CT chest showing R hilar mass some interval improvement in RUL aeration. PROBLEMS: 1. Acute Hypoxemic Respiratory Failure secondary to right lobe pneumonia 2/2 aspiration pneumonia, with concern for RUL mass on CT -s/p 7d of antibiotics (6 days of zosyn and 1 day of levaquin) -continue with Xopenex PRN -c/w incentive spirometry, lung expansion therapy, Mucinex, percussion therapy -urine Streptococcal pneumoniae Legionella negative, no sputum expectorated -c/w Aspiration precaution. -c/w pureed diet -c/w O2 greater than 88% -continue acapella -repeat CT chest today showing persistent mass but with improved aeration in RUL 2. Type 2 NSTEMI with elevated trop, dynamic EKG in the setting of PNA -patient without any chest pain -c/w telemetry -Echo completed, result above. -Dr. Astudillo Consulted, to c/w labetalol 200 mg twice a day, aspirin 81 mg daily, clopidogrel 75 mg daily, atorvastatin 40 mg. 3. SIRS with worsening WBC and tachycardia: -Non focal stable ROS and stable exam -Did CT chest today that showed persistent mass but with improved aeration in RUL -ID consulted today 3. Hypernatremia: in the setting of hypovolemia with no PO. -Will add D5W @ 75cc/hr 4. History of hypertension. -c/w home labetalol 200 mg twice a day 5. History of depression and anxiety. -continue her PO Lexapro 5mg 6. History of hyperlipidemia. -c/w atorvastatin 40 mg 7. History of multiple CVAs. - continue ASA and also now on plavix after type 2 NSTEMI with dynamic EKG 8. Abnormal TSH -secondary to being acutely sick. -to recheck as an outpatient -no intervention needed 9. Low back pain: -c/w physical therapy (PT) and occupational therapy (OT), 10. Diabetes. -Continue to hold home diabetes meds -Currently placed on pureed diet, will increase Levemir today, FSBG to AC/HS, SSI 11. Diet. -aspiration risk -s/p speech eval --> on pureed diet 11. HFrEF. -Echocardiogram 05/31/2019 showed 50% EF - will monitor, with stable hypoxemia recently improving 12. GOC: remains DNR/DNI working on non-invasive interventions for reversible phenomena. 13. Deconditioning: Ongoing PT/OT DVT prophylaxis: Heparin BID DISPOSITION: medsurg with ongoing O2 downtitration and PT/OT. VS,Fishbone, I+O VS, Fishbone, I+O Laboratory Tests 06/08/19 06:41 Vital Signs Date Time Temp Pulse Resp B/P (MAP) Pulse Ox O2 Delivery O2 Flow Rate FiO2 06/08/19 09:44 125 143/80 06/08/19 07:15 96 Nasal Cannula 1.5 06/08/19 03:09 20 06/07/19 21:26 98.1 06/04/19 12:00 40 I&O- Last 24 Hours up to 6 AM 06/08/19 06:00 Intake Total 1470 ml Output Total 1050 ml Balance 420 ml CHERY CELESTE MD Jun 08, 2019 15:07
[2019-06-08] MEDS ORDERED: D5W 1,000 ML IV SCH (15:15)
[2019-06-08] MEDS ORDERED: MORPHINE 2 MG/ML 1ML VIAL (J2270) IV PRN (19:45)
[2019-06-08] MEDS ORDERED: SCOPOLAMINE 1MG TRANSDERMAL PATCH TOP PRN (19:45)
[2019-06-08] MEDS ORDERED: ATROPINE SULFATE 1% OP SOLN 2 ML BTL SL PRN (19:45)
[2019-06-08] MEDS ORDERED: ACETAMINOPHEN 650 MG SUPP PR PRN (19:45)
[2019-06-08] MEDS ORDERED: LEVEMIR (INSULIN DETEMIR) 1 UNITS/0.01ML SC SCH (21:00)
--- NOTE | 2019-06-08 22:15 | DS.PDOC ---
Discharge Summary General Date of Admission May 30, 2019 at 10:51 Date of Discharge 06/08/2019 Attending Physician: CHERY CELESTE MD Specialist/Consultants Involve: DANISHA JOYCE MD Discharge Summary PROCEDURES PERFORMED DURING STAY: None. ADMITTING DIAGNOSES: 1. Acute hypoxic respiratory failure secondary to right upper lobe pneumonia. 2. Right upper lobe pneumonia 3. Elevated troponins. DISCHARGE DIAGNOSES: 1. Type 2 NSTEMI with elevated trop 2. Acute Hypoxemic Respiratory Failure secondary to right lobe pneumonia 2/2 aspiration pneumonia, with concern for RUL mass on CT 2. Type 2 NSTEMI with elevated trop 3. SIRS with worsening WBC and tachycardia 4. Hypernatremia: in the setting of hypovolemia COMPLICATIONS/CHIEF COMPLAINT: Pneumonia. HISTORY OF PRESENT ILLNESS: This is a pleasant 78-year-old female who presented to our emergency room for shortness of breath, which started the night prior to presentation. On the night prior to admission, she was woken up suddenly because she had trouble breathing. She states that she did not have any chest pain, fevers, chills, cough production, or upper respiratory like symptoms. She just notes that she had trouble breathing, but she was unable to catch her breath. She states that she is normally on room air, but yesterday she had to be placed on nasal cannula prior to being transferred to [facility] emergency room for further evaluation. HOSPITAL COURSE: She was admitted to [facility] on antibiotics and aggressive pulmonary toilet. Echocardiogram showed left ventricular ejection fraction around 50% and grade 1 diastolic dysfunction. She also had elevated troponins that were originally attributed to demand ischemia. Dr. Joyce from cardiology was consulted, she was diagnosed with type 2 NSTEMI. She had progressively worsening hypoxia despite appropriate therapy, and several instances of aspiration. Antibiotic coverage was adjusted appropriately to cover for anaerobic pathogens. She improved somewhat, and was eventually able to be weaned down to 3 L via nasal cannula. She was switched to a pured diet at the recommendations of speech therapy, due to her aspirations. She did, however, become physically deconditioned due to her prolonged hospitalization. She also had a significant increase in her leukocytosis, along with worsening of renal function and electrolyte balance. A discussion was held with her family, as per the patient's she did not want to be resuscitated or intubated. They decided to make her comfort measures only, in accordance with her wishes. She at 2110 hours on 06/08/2019. LABORATORY DATA: Please see below. IMAGING STUDIES: Chest x-ray 03/30/2020 Chest x-ray showed right lung upper lobe infiltrate, interval elevation of the right hemidiaphragm Echocardiogram: 05/31/2019 1. Study is of fair technical quality. The patient is in sinus rhythm. 2. Normal LV size with wall motion abnormality involving distal segments of left ventricle and apex and overall estimated EF around 50%. This is based on poor visualization. Grade 1 diastolic dysfunction. 3. No hemodynamically significant valvular disease. 4. Likely normal central venous pressure and mild pulmonary hypertension Chest Xray 06/01/2019 Impression: Diffuse bilateral pleuroparenchymal changes (right greater than left) similar to prior examination. CT chest 06/01/2019 1. Moderate area of mass-like consolidation extending from the right hilum tothe right upper lobe along with mediastinal and right hilar adenopathy.Differential diagnosis includes acute pneumonia and malignancy. 2. Scattered linear atelectasis and trace right effusion. 3. Underlying chronic interstitial and emphysematous changes. Atherosclerotic disease. 4. Mild compression deformity at T8 of uncertain chronicity. CT chest: 06/08/2019 Presumed right hilar mass/consolidation extending into the right upper lobe with multiple right upper lobe satellite nodules and a second area of prominent mass/consolidation along the anterior right apex measuring 2.6 cm are again identified. There appears to be slight decrease in the associated right upper lobe consolidation with minimally improved aeration to the right upper lobe. The right hilar mass also causes obstruction to the right upper lobe bronchus. Associated elements of atelectasis involving the right upper lobe, right lower lobe, left lower lobe and lingula as well as significant mediastinal and hilar adenopathy are unchanged from prior examination. Underlying chronic COPD and scattered scarring again noted. No significant effusion. DISCHARGE CONDITION: TIME SPENT ON DISCHARGE: Greater than 30 minutes. Vital Signs/I&Os Vital Signs Date Time Temp Pulse Resp B/P (MAP) Pulse Ox O2 Delivery O2 Flow Rate FiO2 06/08/19 14:00 97.4 96 18 100/54 (69) 97 Nasal Cannula 1.5 06/04/19 12:00 40 I&O- Last 24 Hours up to 6 AM 06/08/19 06:00 Intake Total 1470 ml Output Total 1050 ml Balance 420 ml Laboratory Data Labs 24H Laboratory Tests 2 06/08/19 05:43: Bedside Glucose (Misc Panel) 291H 06/08/19 06:41: Nucleated Red Blood Cells % (auto) 0.0, Anion Gap 4L, Glomerular Filtration Rate 46.9, Calcium Level 9.4 06/08/19 12:19: Bedside Glucose (Misc Panel) 346H 06/08/19 14:57: Bedside Glucose (Misc Panel) 330H 06/08/19 16:55: Bedside Glucose (Misc Panel) 274H CBC/BMP Laboratory Tests 06/08/19 06:41 FSBS Laboratory Tests Test 06/08/19 05:43 06/08/19 12:19 06/08/19 14:57 06/08/19 16:55 Range/Units Bedside Glucose (Misc Panel) 291 346 330 274 83-110 MG/DL Microbiology Microbiology 05/30/19 Blood Culture - Final, Complete NO GROWTH AFTER 5 DAYS 05/30/19 Respiratory Virus Panel (PCR) (CATALINO) - Final, Complete 05/30/19 Blood Culture - Final, Complete NO GROWTH AFTER 5 DAYS Discharge Medications Scheduled Acetaminophen (Acetaminophen) 325 Mg Tablet, 650 MG PO BID, (Reported) Aspirin (Aspirin EC) 81 Mg Tablet.dr, 81 MG PO DAILY, (Reported) Atorvastatin Calcium (Atorvastatin Calcium) 40 Mg Tablet, 40 MG PO QPM, (Reported) Cholestyramine (with Sugar) (Questran Packet) 4 Gm Powd.pack, 4 GM PO BID, (Reported) Escitalopram Oxalate (Lexapro) 5 Mg Tablet, 5 MG PO DAILY, (Reported) Fluticasone Propionate (Flonase Allergy Relief) 9.9 Ml [place].susp, 1 SPRAY NA QPM, (Reported) Glipizide (Glipizide) 5 Mg Tablet, 2.5 MG PO BID, (Reported) Labetalol HCl (Labetalol HCl) 200 Mg Tablet, 200 MG PO BID, (Reported) Lidocaine HCl (Aspercreme) 4% Cream..g., 1 DOSE TOP BID, (Reported) APPLY TO LOWER BACK Lisinopril (Lisinopril) 2.5 Mg Tablet, 2.5 MG PO QPM, (Reported) Scheduled PRN Acetaminophen (Tylenol) 325 Mg Tablet, 650 MG PO Q4H PRN for PAIN / FEVER, (Reported) Albuterol Sulf (Albuterol Sulfate) 2.5 Mg/3 Ml Vial.neb, 2.5 MG INH Q4H PRN for SHORTNESS OF BREATH, (Reported) Bisacodyl (Bisacodyl) 10 Mg Supp.rect, 10 MG ME DAILY PRN for CONSTIPATION, (Reported) Loperamide HCl (Loperamide) 2 Mg Capsule, 2 MG PO BID PRN for DIARRHEA, (Reported) Magnesium Hydroxide (Milk of Magnesia) 400 Mg/5 Ml Oral.susp, 30 ML PO DAILY PRN for CONSTIPATION, (Reported) Sodium Phosphate,Mellette-Dibasic (Enema) 133 Ml Enema, 1 KWAN ME DAILY PRN for CONSTIPATION, (Reported) Allergies Coded Allergies: No Known Allergies (Unverified , 07/20/15) GME ATTESTATION GME ATTESTATION My faculty preceptor for this patient encounter was physically present during the encounter and was fully available. All aspects of the patient interview, examination, medical decision making process, and medical care plan development were reviewed and approved by the faculty preceptor. The faculty preceptor is aware and concurs with the plan as stated in the body of this note and will attest to such by his/her cosignature. LUCITA SALMON D.O. Jun 08, 2019 22:15 QUEENIE BUCK DO Jun 09, 2019 22:25
== END 2019-06-08 21:10 | disposition expired | DRG 177 ==
LOC: EDBD 08:03 → M ED 08:03 → EEVIPCON 10:51 → M ED INP 10:51 → ENRESERV 11:08 → M MSPAV 11:46 → M PCU 23:24 → M MS5PR 06-07 12:05
PROVIDERS: ADMIT Internal Medicine; ATTEND Internal Medicine
DX: J69.0 Pneumonitis due to inhalation of food and vomit (principal); J96.01 Acute respiratory failure with hypoxia; I21.A1 Myocardial infarction type 2; E87.0 Hyperosmolality and hypernatremia; Q21.1 Atrial septal defect; I50.22 Chronic systolic (congestive) heart failure; I13.0 Hypertensive heart and chronic kidney disease with heart failure and stage 1 through stage 4 chronic kidney disease, or unspecified chronic kidney disease; R65.10 Systemic inflammatory response syndrome (SIRS) of non-infectious origin without acute organ dysfunction; I24.8 Other forms of acute ischemic heart disease; Z66 Do not resuscitate; Z51.5 Encounter for palliative care; R79.89 Other specified abnormal findings of blood chemistry; E86.1 Hypovolemia; D72.829 Elevated white blood cell count, unspecified; I35.0 Nonrheumatic aortic (valve) stenosis; E11.22 Type 2 diabetes mellitus with diabetic chronic kidney disease; E11.65 Type 2 diabetes mellitus with hyperglycemia; E78.00 Pure hypercholesterolemia, unspecified; M54.5 Low back pain; F32.9 Major depressive disorder, single episode, unspecified; F41.9 Anxiety disorder, unspecified; Z86.73 Personal history of transient ischemic attack (TIA), and cerebral infarction without residual deficits; R00.0 Tachycardia, unspecified; R91.8 Other nonspecific abnormal finding of lung field; E03.9 Hypothyroidism, unspecified; N18.3 Chronic kidney disease, stage 3 (moderate); E78.5 Hyperlipidemia, unspecified; Z79.01 Long term (current) use of anticoagulants; Z79.82 Long term (current) use of aspirin; Z79.899 Other long term (current) drug therapy; Z87.891 Personal history of nicotine dependence; E87.6 Hypokalemia; J44.9 Chronic obstructive pulmonary disease, unspecified; Z72.3 Lack of physical exercise